=== PATIENT | male | born 1990 ===

== ENCOUNTER 2020-02-16 15:49 | Outpatient (REF) | payer BC, SELFPAY | END 2020-02-16 15:50 | disposition home or self-care (01) | LOC: HO.LAB 15:49 | PROVIDERS: Visit Provider Internal Medicine | DX: Z20.828 Contact with and (suspected) exposure to other viral communicable diseases (principal) | CPT/HCPCS: U0003 ==

== ENCOUNTER 2020-03-18 09:46 | Outpatient (REF) | payer BC, SELFPAY | END 2020-03-18 09:47 | disposition home or self-care (01) | LOC: HO.LAB 09:46 | PROVIDERS: PCP Internal Medicine; Visit Provider Internal Medicine | DX: Z20.828 Contact with and (suspected) exposure to other viral communicable diseases (principal) | CPT/HCPCS: C9803; U0003 ==

== ENCOUNTER 2020-08-20 14:46 | Outpatient (REF) | payer BC, SELFPAY | END 2020-08-20 14:47 | disposition home or self-care (01) | LOC: HO.LAB 14:46 | PROVIDERS: Visit Provider Internal Medicine | DX: Z20.822 Contact with and (suspected) exposure to COVID-19 (principal) | CPT/HCPCS: C9803; U0003; U0005 ==

== ENCOUNTER 2020-11-30 12:55 | Outpatient (REF) | payer BC, SELFPAY | END 2020-11-30 12:56 | disposition home or self-care (01) | LOC: HO.LAB 12:55 | PROVIDERS: Visit Provider Internal Medicine | DX: Z20.822 Contact with and (suspected) exposure to COVID-19 (principal) | CPT/HCPCS: C9803; U0003; U0005 ==

== ENCOUNTER 2021-05-18 14:33 | Outpatient (REF) | payer BC, SELFPAY ==
[2021-05-19 04:25] LABS: HBS Num1 180.49 mIU/mL (0-7.99); HBc Num1 0.08 S/CO (0.00-0.79); HIV AB/AG Nonreactive (Nonreactive); HIV Num 1 0.07 S/CO (0.00-0.99); Hepatitis B Core Antibody Nonreactive (Nonreactive); ~Hepatitis B Surface Antibody REACTIVE (Nonreactive)
[2021-05-19 04:29] LABS: HBsAGNum1 0.21 S/CO (0.00-0.99); Hepatitis B Surface Antigen Negative (Negative); ~Hepatitis C Antibody Nonreactive (Nonreactive)
== END 2021-05-18 14:34 | disposition home or self-care (01) ==
LOC: HO.LAB 14:33
PROVIDERS: PCP Internal Medicine; Visit Provider Internal Medicine
DX: E66.9 Obesity, unspecified (principal); R79.89 Other specified abnormal findings of blood chemistry
CPT/HCPCS: 36415; 86704; 86706; 86803; 87340; 87389

== ENCOUNTER → 2022-01-05 13:58 | Outpatient (BNVA) | payer OTHER, SELFPAY | PROVIDERS: PCP Internal Medicine; Visit Provider Physician Assistant | DX: S50.11XA Contusion of right forearm, initial encounter (principal); Y04.8XXA Assault by other bodily force, initial encounter | CPT/HCPCS: 99203 ==

== ENCOUNTER → 2022-01-13 11:31 | Outpatient (BNVA) | payer OTHER, SELFPAY | PROVIDERS: PCP Internal Medicine; Visit Provider Physician Assistant | DX: S50.11XA Contusion of right forearm, initial encounter (principal); Y04.8XXA Assault by other bodily force, initial encounter | CPT/HCPCS: 99213 ==

== ENCOUNTER 2022-05-01 11:48 | Outpatient (REF) | payer OTHER, SELFPAY ==
--- NOTE | ~2022-05-01 | XR_ITS ---
EXAMINATION: XR CHEST CLINICAL INFORMATION: Contusion front wall of the thorax COMPARISON: None TECHNIQUE: 2 views of the chest were obtained. FINDINGS: No significant abnormality is noted involving the heart, lungs, mediastinum, bony thorax or soft tissues. XR/XR chest 2V IMPRESSION: Unremarkable examination.
== END 2022-05-01 11:49 | disposition home or self-care (01) ==
LOC: HO.HMGCX 11:48
PROVIDERS: PCP Internal Medicine; Visit Provider Internal Medicine
DX: S20.219A Contusion of unspecified front wall of thorax, initial encounter (principal); X58.XXXA Exposure to other specified factors, initial encounter; Y93.9 Activity, unspecified; Y92.9 Unspecified place or not applicable; Y99.9 Unspecified external cause status
CPT/HCPCS: 71046

== ENCOUNTER 2022-05-04 14:42 | Emergency (ER) | payer OTHER, SELFPAY ==
--- NOTE | ~2022-05-04 | XR_ITS ---
EXAMINATION: XR CHEST CLINICAL INFORMATION: Abdominal pain radiating to chest COMPARISON: Chest radiographs 05/01/2022, abdominal ultrasound 05/04/2022 TECHNIQUE: 2 views of the chest were obtained. FINDINGS: There are low lung volumes. Heart is within limits of normal size. The vascularity is normal. There is mild coarsening of the bronchiolar markings. The posterior costophrenic sulci are clear and there is no effusion. Small opacity left lateral base may represent atelectasis or airspace consolidation. The remainder lungs appear clear. The hilar and mediastinal contours and visualized bony structures are unremarkable. XR/XR chest 2V IMPRESSION: 1. Low lung volumes. Mild coarsening bronchiolar markings. 2. Small opacity left lateral base, atelectasis or small airspace consolidation. 3. Posterior costophrenic sulci are clear. No effusion.
--- NOTE | ~2022-05-04 | US_ITS ---
EXAMINATION: US ABDOMEN COMPLETE CLINICAL INFORMATION: Upper abdominal pain x2 weeks. COMPARISON: None TECHNIQUE: Real-time imaging of the abdominal viscera. FINDINGS: PANCREAS: Obscured by bowel gas and could not be evaluated ABDOMINAL AORTA: Only the proximal aorta couldn't be seen and was normal caliber. The mid and distal aorta were obscured by bowel gas. INFERIOR VENA CAVA: Visualized portions are normal. LIVER: There is limited visualization of the left lobe because of overlying bowel gas. The liver is normal in size. The liver contour is normal. Parenchymal echogenicity is normal. No focal hepatic lesion. There is no intrahepatic biliary duct dilatation seen. GALLBLADDER: The gallbladder is physiologically distended without evidence of stones, sludge, polyps, wall thickening or pericholecystic fluid. COMMON BILE DUCT: Normal in caliber measuring 0.5 cm in diameter. RIGHT KIDNEY: No hydronephrosis. No renal calculi or focal parenchymal lesions. The kidney measures 9.5 cm in maximum dimension. LEFT KIDNEY: No hydronephrosis. There is a 1.4 cm benign Bosniak class I lower pole cyst. This needs no additional imaging or follow-up. No solid renal masses. No renal calculi or focal parenchymal lesions. The kidney measures 10.7 cm in maximum dimension. SPLEEN: Spleen is enlarged measuring 13.9 cm in maximum dimension. FREE FLUID: None. US/US abdomen complete IMPRESSION: Mild splenomegaly. The pancreas could not be imaged as it was obscured by bowel gas.
--- NOTE | ~2022-05-04 | CT_ITS ---
EXAMINATION: CT ABDOMEN AND PELVIS WITH CONTRAST CLINICAL INFORMATION: Abdominal pain COMPARISON: None TECHNIQUE: Multidetector volumetric images were obtained from the superior aspect of the liver through the pubic symphysis following administration 85 mL of Omnipaque 350 intravenous contrast. Sagittal and coronal reformatted images were obtained on the technologist's workstation. Oral contrast: No This CT examination was performed using dose optimization techniques as appropriate, variously including the following: *Automated exposure control *Adjustment of mA and/or kV according to patient size (this includes techniques or standardized protocols for targeted exams where dose is matched to indication/reason for exam; i.e. extremities or head) *Use of iterative reconstruction technique DLP: 674 mGy-cm FINDINGS: Motion degraded exam limiting evaluation. LUNG BASES: Respiratory motion limits evaluation of the lung bases. ABDOMINAL AND PELVIC WALL: Unremarkable. LIVER AND BILIARY TREE: Unremarkable. GALLBLADDER: Unremarkable. PANCREAS: Unremarkable. SPLEEN: Spleen is mildly enlarged measuring 13.1 cm in span. ADRENAL GLANDS: Unremarkable. KIDNEYS AND URETERS: Bosniak 2 likely benign left renal cyst, no imaging follow-up recommended. GASTROINTESTINAL TRACT: Large and small bowel are unremarkable. Normal appendix. VASCULAR: Unremarkable. LYMPH NODES/PERITONEUM: Mildly enlarged bilateral inguinal nodes measuring up to 1.2 cm short axis, 3:99 on the left. FREE FLUID: None. BLADDER: Unremarkable. PELVIC VISCERA: Unremarkable. OSSEOUS STRUCTURES: Unremarkable. CT/CT abdomen pelvis w IV con IMPRESSION: No acute findings to explain symptoms of abdominal pain, although motion degradation somewhat limits evaluation. Mildly enlarged bilateral inguinal nodes measuring up to 1.2 cm short axis on the left, of indeterminate etiology, however given concomitant mild splenomegaly, recommend clinical correlation with any symptoms of underlying lymphoproliferative disorder. Inguinal nodes would be amenable to short interval follow-up or sampling as clinically warranted.
[2022-05-04 14:43] VITALS: BP 151/93; PULSE 88; RESP 17; TEMP 36.6; O2SAT 98; BMI 30.7
--- NOTE | 2022-05-04 14:44 | ECG_ITS ---
Test Reason : CHEST PAIN Blood Pressure : / mmHG Vent. Rate : 084 BPM Atrial Rate : 084 BPM P-R Int : 138 ms QRS Dur : 108 ms QT Int : 360 ms P-R-T Axes : 030 068 -01 degrees QTc Int : 425 ms Normal sinus rhythm Abnormal QRS-T angle, consider primary T wave abnormality Abnormal ECG No previous ECGs available Referred By: Angelica Bunch Electronically Signed By:DARIUSZ ANGUIANO MD
--- NOTE | 2022-05-04 14:45 | ED_ITS ---
HPI - Abdominal Pain General Chief Complaint: Abdominal Pain <ELMO Robert - Last Filed: 05/04/22 14:48> Stated Complaint: L abd pain <ELMO Robert - Last Filed: 05/04/22 14:48> Time Seen by Provider: 05/04/22 17:06 <ELMO Robert - Last Filed: 05/04/22 14:48> Source: patient <Latrell Garcia MD - Last Filed: 05/04/22 19:48> Limitations: no limitations <Latrell Garcia MD - Last Filed: 05/04/22 19:48> History of Present Illness HPI narrative: This is a 31-year-old male who for several days has had pain that began in his right upper quadrant with associated nausea. The pain has at times been worse with eating. He states his overall appetite has been decreased. Patient also reports pain in his left upper abdomen which he states is sharp and shooting, and worse with movement. Patient has felt a little short of breath. Denies any cough or fever. He has noted that his stool seems front end ui developer in color in his urine seemed darker. He denies constipation or diarrhea, this urinary or urinary frequency. The patient's os primary care physician today and was referred to the emergency department . The patient denies heavy alcohol use, last had a drink about 5 days ago, said it was only 1-2 drinks, denies daily use, denies heavy use <Latrell Garcia MD - Last Filed: 05/04/22 19:48> Related Data Home Medications: Previous Rx's Medication Instructions Recorded meloxicam 15 mg tablet 15 mg PO DAILY #14 tabs 05/01/22 ondansetron 4 mg disintegrating 4 mg PO Q6H PRN nausea and 05/04/22 tablet vomiting #10 tabs oxycodone-acetaminophen 5 mg-325 1 - 2 tab PO Q4-6H PRN pain #12 05/04/22 mg tablet (Endocet) tabs <ELMO Robert - Last Filed: 05/04/22 14:48> Allergies/Adverse Reactions: Allergies Allergy/AdvReac Type Severity Reaction Status Date / Time No Known Allergies Allergy Verified 05/04/22 13:54 <ELMO Robert - Last Filed: 05/04/22 14:48> Review of Systems Review of Systems as per HPI <Latrell Garcia MD - Last Filed: 05/04/22 19:48> Yes all other systems are reviewed and are negative <Latrell Garcia MD - Last Filed: 05/04/22 19:48> PMFSH Past Medical History Medical History: Medical History (Updated 05/04/22 @ 19:14 by Latrell Garcia MD) Asthma Generalized anxiety disorder Obesity (BMI 30-39.9) Thrombocytopenia <ELMO Robert - Last Filed: 05/04/22 14:48> Surgical History: Surgical History (Updated 01/29/20 @ 13:44 by Krystin Dozier [facility]) No pertinent past surgical history <ELMO Robert - Last Filed: 05/04/22 14:48> Family History Family History: Family History (Updated 05/18/21 @ 13:51 by Kavya Nagy MD) Father Depression Mother Hypertension Depression Paternal Grandmother Breast cancer Brother Eye cancer Maternal Grandmother Myocardial infarction Maternal Grandfather Substance abuse Other Brain tumor <ELMO Robert - Last Filed: 05/04/22 14:48> Social History Social History: Social History (Updated 05/18/21 @ 13:52 by Kavya Nagy MD) Housing: Apartment Alcohol intake: current Alcohol intake frequency: does not drink Patient Tobacco Use Status: Never used Tobacco Smoked in Last 30 Days: No e-Cigarette/Vaping Use: Never Used Second Hand Smoke Exposure: No Use of substances other than those prescribed or required for medical reasons: Yes Substance Use Type: Marijuana Substance Use Frequency: Occasionally Advance Directives: No Advance Directives Information Provided: No Current occupational status: employed Cognitive needs: No Hearing needs: No Vision needs: No <ELMO Robert - Last Filed: 05/04/22 14:48> Physical Exam ED Vital Signs: Vital Signs - 24 hr 05/04/22 14:43 05/04/22 16:50 05/04/22 19:34 Temperature 98 F 98.2 F 97.9 F Pulse Rate 88 68 82 Respiratory Rate 17 20 16 Blood Pressure 151/93 H 147/87 H 140/87 H Pulse Oximetry 98 99 96 Oxygen Delivery Method Room Air Room Air Room Air BMI result Body Mass Index 30.7 <ELMO Robert - Last Filed: 05/04/22 14:48> Vital Signs - 24 hr 05/04/22 14:43 05/04/22 16:50 05/04/22 19:34 Temperature 98 F 98.2 F 97.9 F Pulse Rate 88 68 82 Respiratory Rate 17 20 16 Blood Pressure 151/93 H 147/87 H 140/87 H Pulse Oximetry 98 99 96 Oxygen Delivery Method Room Air Room Air Room Air BMI result Body Mass Index 30.7 <Latrell Garcia MD - Last Filed: 05/04/22 19:48> Const General: no acute distress <Latrell Garcia MD - Last Filed: 05/04/22 19:48> Orientation/consciousness: patient oriented x3 <Latrell Garcia MD - Last Filed: 05/04/22 19:48> HENMT Head: Yes normal to inspection <Latrell Garcia MD - Last Filed: 05/04/22 19:48> General nose exam: Normal external nose present <Latrell Garcia MD - Last Filed: 05/04/22 19:48> Mouth: moist mucous membranes <Latrell Garcia MD - Last Filed: 05/04/22 19:48> Throat: Yes posterior oropharynx normal, Yes tonsils normal and Yes uvula midline <Latrell Garcia MD - Last Filed: 05/04/22 19:48> Eyes Eyelids: Yes eyelids normal <Latrell Garcia MD - Last Filed: 05/04/22 19:48> Conjunctivae: conjunctivae normal <Latrell Garcia MD - Last Filed: 05/04/22 19:48> Pupils: Equal, round and reactive pupils present <Latrell Garcia MD - Last Filed: 05/04/22 19:48> Neck Neck: Yes supple <Latrell Garcia MD - Last Filed: 05/04/22 19:48> Resp Effort & Inspection: normal respiratory effort <Latrell Garcia MD - Last Filed: 05/04/22 19:48> Auscultation: clear to auscultation bilaterally <Latrell Garcia MD - Last Filed: 05/04/22 19:48> Cardio Rate: regular rate <MD Aster Goodrich Last Filed: 05/04/22 19:48> Rhythm: regular rhythm <MD Aster Goodrich Last Filed: 05/04/22 19:48> Heart sounds: S1 normal heart sound present, S2 normal heart sound present, no gallops, no murmurs and no rubs <Latrell Garcia MD - Last Filed: 05/04/22 19:48> GI Inspection: No distended <Latrell Garcia MD - Last Filed: 05/04/22 19:48> Palpation (GI): Tenderness to palpation present (GI) in the epigastrum, in the LUQ and in the RUQ <Latrell Garcia MD - Last Filed: 05/04/22 19:48> Skin General skin exam: other (Warm and dry) <Latrell Garcia MD - Last Filed: 05/04/22 19:48> Neuro General: patient oriented x3 and CN's II-XI intact bilaterally <Latrell Garcia MD - Last Filed: 05/04/22 19:48> Cranial nerves: Yes Equal, round and reactive pupils present <Latrell Garcia MD - Last Filed: 05/04/22 19:48> Extrem General: Yes no pedal edema <Latrell Garcia MD - Last Filed: 05/04/22 19:48> Psych Affect: normal affect <Latrell Garcia MD - Last Filed: 05/04/22 19:48> Attitude: cooperative <Latrell Garcia MD - Last Filed: 05/04/22 19:48> Course Course Course Narrative: RME14:45PM - 31yoM c PMHx of asthma with presenting to the ER with complaints of g eneralized fatigue/malaise, chills, subjective fevers, nausea with right upper quadrant pain that is now radiating to the epigastric/chest/left upper quadrant for the past 2 weeks worse today. Reports he was seen at the urgent care on 05/01/2022 and diagnosed with muscle strain and given meloxicam and although no symptomatic relief. Then he went to Dr. Nagy his primary today and he sent him here for further evaluation treatment. Dr. Nagy when he spoke to me over the phone to give me report he reported that he did urine for the patient the patient had protein in his urine although no blood in his urine was dark in color. Patient is also reporting david-colored stools. Denies any other symptoms related to this. Denies recent alcohol drinking. Plan: Will obtain labs, EKG, chest x-ray, abdominal ultrasound, UA, COVID/RSV/flu swab. Patient will be sent back to the waiting room to be destin garibay in the ED. <ELMO Robert - Last Filed: 05/04/22 14:48> Medical Decision Making Medical Decision Making [facility] Narrative: Patient with right upper quadrant and left upper quadrant pain. Exam seems out of proportion to objective pathology. Patient does have mild elevation of his liver transaminases and alkaline phosphatase, normal bilirubin. Patient seemed to have exquisite tenderness in his left upper quadrant. Patient does have mild splenomegaly but CT scan shows no other concerning pathology -does have mildly enlarged lymph glands in his inguinal area. Ultrasound showed physiologically distended gallbladder but no other evidence of biliary disease. White blood cell count is normal. Patient has history of generalized anxiety disorder and I suspect there may be degree of anxiety component to the patient's presentation. Patient plane of left-sided chest pain as well as the upper quadrant pain. EKG was unremarkable, troponin negative. Patient does have mildly elevated ESR has well as CRP, nonspecific. <Latrell Garcia MD - Last Filed: 05/04/22 19:48> Differential Diagnosis Differential Diagnoses: The differential diagnosis associated with the presentation includes <Latrell Garcia MD - Last Filed: 05/04/22 19:48> Biliary colic, cholecystitis, pancreatitis, adynamic gallbladder, peptic ulcer disease, pyelonephritis, splenic infarct, pneumonia, acute myocardial infarction. <Latrell Garcia MD - Last Filed: 05/04/22 19:48> Admission/Observation Consideration of admission/observation: Escalation of care including admission/observation considered <Latrell Garcia MD - Last Filed: 05/04/22 19:48> Consult Healthcare Provider Management of the patient was discussed with: Paper Spooler <Latrell Garcia MD - Last Filed: 05/04/22 19:48> Dr. Simmons of GI, agrees with outpatient follow up, outpatient HIDA scan, she will order a HIDA scan tomorrow for as soon as possible, likely next week. She also recommends repeat LFTs in 3 days on Sunday. <Latrell Garcia MD - Last Filed: 05/04/22 19:48> Lab Data [facility] Lab Attestation statement: I reviewed the patient's lab results. <Latrell Garcia MD - Last Filed: 05/04/22 19:48> Result Diagrams: 05/04/22 14:58 05/04/22 14:58 <Angelica Bunch, PA - Last Filed: 05/04/22 14:48> Labs: Lab Results 05/04/22 05/04/22 05/04/22 Range/Units 14:58 14:58 14:58 WBC 7.7 (4.8-10.8) X10*3/uL RBC 5.66 (4.60-5.80) X10*6/uL Hgb 13.7 L (14.0-18.0) g/dl Hct 42.9 (42.0-52.0) % MCV 75.8 L (80.0-98.0) fL MCH 24.2 L (27.0-33.0) pg MCHC 31.9 (31.0-36.0) g/dl RDW 15.3 (11.0-16.0) % Plt Count 261 (160-400) X10*3/uL MPV 8.8 L (9.4-12.4) fL Immature Gran % (Auto) 0.4 (0.0-0.4) % Neut % (Auto) 62.3 (45-73) % Lymph % (Auto) 22.9 (20-40) % [place] % (Auto) 8.3 (2-11) % Eos % (Auto) 5.6 H (0-4) % Baso % (Auto) 0.5 (0-2) % Lymph # (Auto) 1.8 (1.2-4.9) X10*3/uL [place] # (Auto) 0.6 (0.1-1.2) X10*3/uL Eos # (Auto) 0.4 (0.0-0.4) X10*3/uL Baso # (Auto) 0.0 (0.0-0.2) X10*3/uL Abs Immat Gran (auto) 0.03 (0.00-0.03) X10*3/uL Absolute Neuts (auto) 4.8 (2.0-8.3) x10*3/uL Absolute Nucleated RBC 0.000 (0.0-0.012) X10*3/uL Nucleated RBC % (auto) 0.0 (0.0-0.2) /100WBC ESR 30 H (0-15) MM/HR PT 13.2 H (10.0-13.1) SEC INR 1.1 (0.9-1.1) Sodium (135-145) mmol/L Potassium (3.3-5.1) mmol/L Chloride (96-108) mmol/L Carbon Dioxide (22-29) mmol/L Anion Gap (12-20) BUN (9-16) mg/dL Creatinine (0.5-1.4) mg/dL Estim Creat Clear Calc Estimated GFR Random Glucose (60-115) mg/dL Calcium (8.4-10.2) mg/dL Magnesium (1.6-2.6) mg/dL Total Bilirubin (0.0-1.0) mg/dL AST (5-37) U/L ALT (0-40) U/L Alkaline Phosphatase (39-117) U/L Troponin I High Sens (<3.5-35.0) ng/L C-Reactive Protein (< or = 0.50) mg/dL Total Protein (6.5-8.0) g/dL Albumin (3.5-5.0) g/dL Lipase (8-78) U/L Urine Color Urine Appearance Urine pH (5.0-9.0) Ur Specific [place] (1.005-1.025) Urine Protein (Neg-Trace) mg/dL Urine Glucose (UA) (Negative) mg/dL Urine Ketones (Negative) mg/dL Urine Blood (Negative) Urine Nitrite (Negative) Ur Leukocyte Esterase (Negative) Urine RBC (0-2) /HPF Urine WBC (0-5) /HPF Ur Squamous Epith Cells (0-2) /HPF Urine Bacteria (None Seen) Hyaline Casts (0-2) /LPF Ethyl Alcohol mg/dL 05/04/22 05/04/22 05/04/22 Range/Units 14:58 14:58 15:52 WBC (4.8-10.8) X10*3/uL RBC (4.60-5.80) X10*6/uL Hgb (14.0-18.0) g/dl Hct (42.0-52.0) % MCV (80.0-98.0) fL MCH (27.0-33.0) pg MCHC (31.0-36.0) g/dl RDW (11.0-16.0) % Plt Count (160-400) X10*3/uL MPV (9.4-12.4) fL Immature Gran % (Auto) (0.0-0.4) % Neut % (Auto) (45-73) % Lymph % (Auto) (20-40) % Barn[place] % (Auto) (2-11) % Eos % (Auto) (0-4) % Baso % (Auto) (0-2) % Lymph # (Auto) (1.2-4.9) X10*3/uL [place] # (Auto) (0.1-1.2) X10*3/uL Eos # (Auto) (0.0-0.4) X10*3/uL Baso # (Auto) (0.0-0.2) X10*3/uL Abs Immat Gran (auto) (0.00-0.03) X10*3/uL Absolute Neuts (auto) (2.0-8.3) x10*3/uL Absolute Nucleated RBC (0.0-0.012) X10*3/uL Nucleated RBC % (auto) (0.0-0.2) /100WBC ESR (0-15) MM/HR PT (10.0-13.1) SEC INR (0.9-1.1) Sodium 136 (135-145) mmol/L Potassium 4.0 (3.3-5.1) mmol/L Chloride 103 (96-108) mmol/L Carbon Dioxide 25 (22-29) mmol/L Anion Gap 12 (12-20) BUN 7 L (9-16) mg/dL Creatinine 0.81 (0.5-1.4) mg/dL Estim Creat Clear Calc 133.4 Estimated GFR > 60 Random Glucose 98 (60-115) mg/dL Calcium 9.0 (8.4-10.2) mg/dL Magnesium 1.9 (1.6-2.6) mg/dL Total Bilirubin 1.0 (0.0-1.0) mg/dL AST 129 H (5-37) U/L ALT 337 H (0-40) U/L Alkaline Phosphatase 466 H (39-117) U/L Troponin I High Sens < 3.5 (<3.5-35.0) ng/L C-Reactive Protein 2.72 H (< or = 0.50) mg/dL Total Protein 7.9 (6.5-8.0) g/dL Albumin 3.8 (3.5-5.0) g/dL Lipase 40 (8-78) U/L Urine Color Yellow Urine Appearance Clear Urine pH 7.0 (5.0-9.0) Ur Specific [place] 1.010 (1.005-1.025) Urine Protein 30 (1+) H (Neg-Trace) mg/dL Urine Glucose (UA) Negative (Negative) mg/dL Urine Ketones Negative (Negative) mg/dL Urine Blood Negative (Negative) Urine Nitrite Negative (Negative) Ur Leukocyte Esterase Negative (Negative) Urine RBC 0-2 (0-2) /HPF Urine WBC 0-5 (0-5) /HPF Ur Squamous Epith Cells 0-2 (0-2) /HPF Urine Bacteria None Seen (None Seen) Hyaline Casts 0-2 (0-2) /LPF Ethyl Alcohol < 10 mg/dL <ELMO Robert - Last Filed: 05/04/22 14:48> Lab Results 05/04/22 05/04/22 05/04/22 Range/Units 14:58 14:58 14:58 WBC 7.7 (4.8-10.8) X10*3/uL RBC 5.66 (4.60-5.80) X10*6/uL Hgb 13.7 L (14.0-18.0) g/dl Hct 42.9 (42.0-52.0) % MCV 75.8 L (80.0-98.0) fL MCH 24.2 L (27.0-33.0) pg MCHC 31.9 (31.0-36.0) g/dl RDW 15.3 (11.0-16.0) % Plt Count 261 (160-400) X10*3/uL MPV 8.8 L (9.4-12.4) fL Immature Gran % (Auto) 0.4 (0.0-0.4) % Neut % (Auto) 62.3 (45-73) % Lymph % (Auto) 22.9 (20-40) % [place] % (Auto) 8.3 (2-11) % Eos % (Auto) 5.6 H (0-4) % Baso % (Auto) 0.5 (0-2) % Lymph # (Auto) 1.8 (1.2-4.9) X10*3/uL [place] # (Auto) 0.6 (0.1-1.2) X10*3/uL Eos # (Auto) 0.4 (0.0-0.4) X10*3/uL Baso # (Auto) 0.0 (0.0-0.2) X10*3/uL Abs Immat Gran (auto) 0.03 (0.00-0.03) X10*3/uL Absolute Neuts (auto) 4.8 (2.0-8.3) x10*3/uL Absolute Nucleated RBC 0.000 (0.0-0.012) X10*3/uL Nucleated RBC % (auto) 0.0 (0.0-0.2) /100WBC ESR 30 H (0-15) MM/HR PT 13.2 H (10.0-13.1) SEC INR 1.1 (0.9-1.1) Sodium (135-145) mmol/L Potassium (3.3-5.1) mmol/L Chloride (96-108) mmol/L Carbon Dioxide (22-29) mmol/L Anion Gap (12-20) BUN (9-16) mg/dL Creatinine (0.5-1.4) mg/dL Estim Creat Clear Calc Estimated GFR Random Glucose (60-115) mg/dL Calcium (8.4-10.2) mg/dL Magnesium (1.6-2.6) mg/dL Total Bilirubin (0.0-1.0) mg/dL AST (5-37) U/L ALT (0-40) U/L Alkaline Phosphatase (39-117) U/L Troponin I High Sens (<3.5-35.0) ng/L C-Reactive Protein (< or = 0.50) mg/dL Total Protein (6.5-8.0) g/dL Albumin (3.5-5.0) g/dL Lipase (8-78) U/L Urine Color Urine Appearance Urine pH (5.0-9.0) Ur Specific [place] (1.005-1.025) Urine Protein (Neg-Trace) mg/dL Urine Glucose (UA) (Negative) mg/dL Urine Ketones (Negative) mg/dL Urine Blood (Negative) Urine Nitrite (Negative) Ur Leukocyte Esterase (Negative) Urine RBC (0-2) /HPF Urine WBC (0-5) /HPF Ur Squamous Epith Cells (0-2) /HPF Urine Bacteria (None Seen) Hyaline Casts (0-2) /LPF Ethyl Alcohol mg/dL 05/04/22 05/04/22 05/04/22 Range/Units 14:58 14:58 15:52 WBC (4.8-10.8) X10*3/uL RBC (4.60-5.80) X10*6/uL Hgb (14.0-18.0) g/dl Hct (42.0-52.0) % MCV (80.0-98.0) fL MCH (27.0-33.0) pg MCHC (31.0-36.0) g/dl RDW (11.0-16.0) % Plt Count (160-400) X10*3/uL MPV (9.4-12.4) fL Immature Gran % (Auto) (0.0-0.4) % Neut % (Auto) (45-73) % Lymph % (Auto) (20-40) % [place] % (Auto) (2-11) % Eos % (Auto) (0-4) % Baso % (Auto) (0-2) % Lymph # (Auto) (1.2-4.9) X10*3/uL [place] # (Auto) (0.1-1.2) X10*3/uL Eos # (Auto) (0.0-0.4) X10*3/uL Baso # (Auto) (0.0-0.2) X10*3/uL Abs Immat Gran (auto) (0.00-0.03) X10*3/uL Absolute Neuts (auto) (2.0-8.3) x10*3/uL Absolute Nucleated RBC (0.0-0.012) X10*3/uL Nucleated RBC % (auto) (0.0-0.2) /100WBC ESR (0-15) MM/HR PT (10.0-13.1) SEC INR (0.9-1.1) Sodium 136 (135-145) mmol/L Potassium 4.0 (3.3-5.1) mmol/L Chloride 103 (96-108) mmol/L Carbon Dioxide 25 (22-29) mmol/L Anion Gap 12 (12-20) BUN 7 L (9-16) mg/dL Creatinine 0.81 (0.5-1.4) mg/dL Estim Creat Clear Calc 133.4 Estimated GFR > 60 Random Glucose 98 (60-115) mg/dL Calcium 9.0 (8.4-10.2) mg/dL Magnesium 1.9 (1.6-2.6) mg/dL Total Bilirubin 1.0 (0.0-1.0) mg/dL AST 129 H (5-37) U/L ALT 337 H (0-40) U/L Alkaline Phosphatase 466 H (39-117) U/L Troponin I High Sens < 3.5 (<3.5-35.0) ng/L C-Reactive Protein 2.72 H (< or = 0.50) mg/dL Total Protein 7.9 (6.5-8.0) g/dL Albumin 3.8 (3.5-5.0) g/dL Lipase 40 (8-78) U/L Urine Color Yellow Urine Appearance Clear Urine pH 7.0 (5.0-9.0) Ur Specific [place] 1.010 (1.005-1.025) Urine Protein 30 (1+) H (Neg-Trace) mg/dL Urine Glucose (UA) Negative (Negative) mg/dL Urine Ketones Negative (Negative) mg/dL Urine Blood Negative (Negative) Urine Nitrite Negative (Negative) Ur Leukocyte Esterase Negative (Negative) Urine RBC 0-2 (0-2) /HPF Urine WBC 0-5 (0-5) /HPF Ur Squamous Epith Cells 0-2 (0-2) /HPF Urine Bacteria None Seen (None Seen) Hyaline Casts 0-2 (0-2) /LPF Ethyl Alcohol < 10 mg/dL <Latrell Garcia MD - Last Filed: 05/04/22 19:48> Independent Interpretation I performed an independent interpretation of an: EKG <Lartell Garcia MD - Last Filed: 05/04/22 19:48> Interpretation: sinus rhythm with a rate of 84. No ST elevation or depression. Abnormal QRS T angle. No prior EKG for comparison <Latrell Garcia MD - Last Filed: 05/04/22 19:48> Radiology Impression Discussion of test interpretation with radiology: I have reviewed the radiologist's reading. <Latrell Garcia MD - Last Filed: 05/04/22 19:48> Radiologist Impression: ultrasound abdomen: The gallbladder is physiologically distended without evidence of stones, sludge, polyps, wall thickening or pericholecystic fluid. COMMON BILE DUCT: Normal in caliber measuring 0.5 cm in diameter. SPLEEN: Spleen is enlarged measuring 13.9 cm in maximum dimension. FREE FLUID: None. IMPRESSION: Mild splenomegaly. The pancreas could not be imaged as it was obscured by bowel gas. chest x-ray: IMPRESSION: 1. Low lung volumes. Mild coarsening bronchiolar markings. 2. Small opacity left lateral base, atelectasis or small airspace consolidation. 3. Posterior costophrenic sulci are clear. No effusion. CT abdomen and pelvis with IV contrast: IMPRESSION: ? No acute findings to explain symptoms of abdominal pain, although motion degradation somewhat limits evaluation. ? Mildly enlarged bilateral inguinal nodes measuring up to 1.2 cm short axis on the left, of indeterminate etiology, however given concomitant mild splenomegaly, recommend clinical correlation with any symptoms of underlying lymphoproliferative disorder. Inguinal nodes would be amenable to short interval follow-up or sampling as clinically warranted. ? <Latrell Garcia MD - Last Filed: 05/04/22 19:48> External Record Review External record reviewed: Prior outpatient labs <Latrell Garcia MD - Last Filed: 05/04/22 19:48> Prescription Management I considered prescription management with: Pain Medication <Latrell Garcia MD - Last Filed: 05/04/22 19:48> Medications Administered Discontinued Medications Generic Name Dose Route Start Last Admin Trade Name Freq PRN Reason Stop Dose Admin Hydromorphone HCl 1 mg 05/04/22 17:45 05/04/22 17:50 Hydromorphone Hcl 1 Mg/Ml Syringe IVPUSH 05/04/22 17:46 1 mg ONCE ONE Administration Protocol Sodium Chloride 1,000 mls @ 999 mls/hr 05/04/22 16:45 05/04/22 17:02 Ns IVCONT 05/04/22 17:45 999 mls/hr .Q1H1M CAROLYN Administration Iohexol 100 ml 05/04/22 17:38 05/04/22 17:38 Iohexol 350 Mg/Ml 100 Ml Infus..Btl IV 05/04/22 17:39 85 ml ONCE ONE Administration Morphine Sulfate 4 mg 05/04/22 16:45 05/04/22 17:02 Morphine Sulfate 4 Mg/Ml Cartridge IVPUSH 05/04/22 16:46 4 mg ONCE ONE Administration Protocol Ondansetron HCl 4 mg 05/04/22 16:45 05/04/22 17:02 Ondansetron Hcl 4 Mg/2 Ml Vial IVPUSH 05/04/22 16:46 4 mg ONCE ONE Administration <ELMO Robert - Last Filed: 05/04/22 14:48> Medications Administered Discontinued Medications Generic Name Dose Route Start Last Admin Trade Name Freq PRN Reason Stop Dose Admin Hydromorphone HCl 1 mg 05/04/22 17:45 05/04/22 17:50 Hydromorphone Hcl 1 Mg/Ml Syringe IVPUSH 05/04/22 17:46 1 mg ONCE ONE Administration Protocol Sodium Chloride 1,000 mls @ 999 mls/hr 05/04/22 16:45 05/04/22 17:02 Ns IVCONT 05/04/22 17:45 999 mls/hr .Q1H1M CAROLYN Administration Iohexol 100 ml 05/04/22 17:38 05/04/22 17:38 Iohexol 350 Mg/Ml 100 Ml Infus..Btl IV 05/04/22 17:39 85 ml ONCE ONE Administration Morphine Sulfate 4 mg 05/04/22 16:45 05/04/22 17:02 Morphine Sulfate 4 Mg/Ml Cartridge IVPUSH 05/04/22 16:46 4 mg ONCE ONE Administration Protocol Ondansetron HCl 4 mg 05/04/22 16:45 05/04/22 17:02 Ondansetron Hcl 4 Mg/2 Ml Vial IVPUSH 05/04/22 16:46 4 mg ONCE ONE Administration <Latrell Garcia MD - Last Filed: 05/04/22 19:48> Discharge Plan Discharge Clinical Impression: Abdominal pain, Abnormal LFTs (liver function tests) <ELMO Robert - Last Filed: 05/04/22 14:48> Patient Disposition: Home, Self-Care <ELMO Robert - Last Filed: 05/04/22 14:48> Instructions: Abdominal Pain (ED) <ELMO Robert - Last Filed: 05/04/22 14:48> Additional Instructions: Follow-up with her primary care physician, and with Gastroenterology. Dr. Simmons of Gastroenterology is to order a HIDA scan for you, which hopefully can have next week. Call your primary care physician tomorrow to arrange to have repeat liver function test done on Sunday. Return for any new or worsened symptoms such as worsened pain, uncontrolled vomiting, fever. Use the pain medicine and medicine for nausea as prescribed. Avoid alcohol use <ELMO Robert - Last Filed: 05/04/22 14:48> Prescriptions: New oxycodone-acetaminophen [Endocet] 5-325 mg tablet 1 - 2 tab PO Q4-6H PRN (Reason: pain) Qty: 12 0RF Rx Instructions: Partial Fill upon patient request. ondansetron 4 mg tablet,disintegrating 4 mg PO Q6H PRN (Reason: nausea and vomiting) Qty: 10 0RF No Action meloxicam 15 mg tablet 15 mg PO DAILY Qty: 14 0RF <ELMO Robert - Last Filed: 05/04/22 14:48> Stand Alone Forms: Work/School Release <ELMO Robert - Last Filed: 05/04/22 14:48> Interventions: ED Discharge Assessment Last Done: 05/04/22 19:36 <ELMO Robert - Last Filed: 05/04/22 14:48> Discharge Date/Time: 05/04/22 19:39 <ELMO Robert - Last Filed: 05/04/22 14:48>
[2022-05-04 15:04] LABS: MANUAL DIFF FLAG NO
[2022-05-04 15:05] LABS: Basophils Percent Auto 0.5 % (0-2); Eosinophils Absolute Auto 0.4 X10*3/uL (0.0-0.4); Eosinophils Percent Auto 5.6 % (0-4); Hematocrit 42.9 % (42.0-52.0); Hemoglobin 13.7 g/dl (14.0-18.0); Imm Gran Abs Auto 0.03 X10*3/uL (0.00-0.03); Imm Gran Pct Auto 0.4 % (0.0-0.4); Lymphocytes Absolute Auto 1.8 X10*3/uL (1.2-4.9); Lymphocytes Percent Auto 22.9 % (20-40); Mean Corpuscular HGB Conc 31.9 g/dl (31.0-36.0); Mean Corpuscular Hemoglobin 24.2 pg (27.0-33.0); Mean Corpuscular Volume 75.8 fL (80.0-98.0); Mean Platelet Volume 8.8 fL (9.4-12.4); Monocytes Absolute Auto 0.6 X10*3/uL (0.1-1.2); Monocytes Percent Auto 8.3 % (2-11); Neutrophils Absolute Auto 4.8 x10*3/uL (2.0-8.3); Neutrophils Percent Auto 62.3 % (45-73); Platelet Count 261 X10*3/uL (160-400); Red Blood Count 5.66 X10*6/uL (4.60-5.80); Red Cell Distribution Width 15.3 % (11.0-16.0); White Blood Count 7.7 X10*3/uL (4.8-10.8)
[2022-05-04 15:11] LABS: INTERNATIONAL NORM RATIO 1.1 (0.9-1.1); Prothrombin Time 13.2 SEC (10.0-13.1)
[2022-05-04 15:23] LABS: Alanine Aminotransferase 337 U/L (0-40); Albumin Level 3.8 g/dL (3.5-5.0); Alkaline Phosphatase 466 U/L (39-117); Anion Gap 12 (12-20); Aspartate Amino Transferase 129 U/L (5-37); Blood Urea Nitrogen 7 mg/dL (9-16); C Reactive Protein 2.72 mg/dL (< or = 0.50); Carbon Dioxide 25 mmol/L (22-29); Chloride 103 mmol/L (96-108); Creatinine Clr Calc Pharmacy 133.4; Estimated Glomerular Filt Rate > 60; Ethanol < 10 mg/dL; Glucose Random 98 mg/dL (60-115); Lipase 40 U/L (8-78); Magnesium 1.9 mg/dL (1.6-2.6); Sodium 136 mmol/L (135-145); Total Protein 7.9 g/dL (6.5-8.0)
[2022-05-04 15:36] LABS: Troponin-I High Sensitivity < 3.5 ng/L (<3.5-35.0)
[2022-05-04 15:44] LABS: Erythrocyte Sedimentation Rate 30 MM/HR (0-15)
[2022-05-04 16:20] LABS: Appearance Urine Clear; Color Urine Yellow; Glucose Urine UA Negative (Negative); Leukocyte Esterase Urine Negative (Negative); Nitrite Urine Negative (Negative); UMIC TRIGGER UACC YES; Urine Blood Negative (Negative); Urine Ketones Negative (Negative); Urine Protein 30 (1+) mg/dL (Neg-Trace)
[2022-05-04 16:25] LABS: Bacteria Urine None Seen (None Seen); Hyaline Casts Urine 0-2 /LPF (0-2); RBC Urine 0-2 /HPF (0-2); Squamous Epithelial Cell Urine 0-2 /HPF (0-2); WBC Urine 0-5 /HPF (0-5)
[2022-05-04 16:50] VITALS: BP 147/87; PULSE 68; RESP 20; TEMP 36.8; O2SAT 99
[2022-05-04] MEDS: 0.9 % Sodium Chloride 1,000 ML 999 ML IVCONT (17:02)
[2022-05-04] MEDS: Morphine Sulfate 4 MG/ML CARTRIDGE IVPUSH (17:02)
[2022-05-04] MEDS: ondansetron HCL 4 MG/2 ML VIAL IVPUSH (17:02)
[2022-05-04] MEDS: iohexoL 350 MG/ML 100 ML INFUS..BTL IV (17:38)
[2022-05-04] MEDS: HYDROmorphone HCl 1 MG/ML SYRINGE IVPUSH (17:50)
[2022-05-04 19:34] VITALS: BP 140/87; PULSE 82; RESP 16; TEMP 36.6; O2SAT 96
== END 2022-05-04 19:39 | disposition home or self-care (01) ==
PROVIDERS: Physician Assistant Medical; Emergency Provider Emergency Medicine; PCP Internal Medicine
DX: R10.11 Right upper quadrant pain (principal); R07.89 Other chest pain; R79.89 Other specified abnormal findings of blood chemistry; Z79.899 Other long term (current) drug therapy
CPT/HCPCS: 36415; 71046; 74177; 76700; 80053; 81001; 82077; 83690; 83735; 84484; 85025; 85610; 85652; 86140; 93005; 96374; 96375; 99284; 99285; J1170; J2270; J2405; Q9967

== ENCOUNTER 2022-05-08 07:30 | Outpatient (REF) | payer OTHER, SELFPAY ==
[2022-05-08 08:54] LABS: Alanine Aminotransferase 324 U/L (0-40); Albumin Level 3.7 g/dL (3.5-5.0); Alkaline Phosphatase 565 U/L (39-117); Aspartate Amino Transferase 182 U/L (5-37); Bilirubin Direct 0.7 mg/dL (0.0-0.5); Bilirubin Total 1.1 mg/dL (0.0-1.0); Gamma Glutamyl Transpeptidase 926 U/L (11-51); Iron 48 mcg/dL (45-160); Percent Iron Saturation 18 % (15-50); Total Iron Binding Capacity 264 mcg/dL (228-428); Total Protein 7.7 g/dL (6.5-8.0); Unsaturated Iron Binding 216 ug/dL
[2022-05-08 08:58] LABS: Ferritin 236 ng/mL (20-250)
[2022-05-08 11:24] LABS: HBS Num1 175.63 mIU/mL (0-7.99); HBc Num1 0.09 S/CO (0.00-0.79); HBsAGNum1 0.27 S/CO (0.00-0.99); Hepatitis B Core Antibody Nonreactive (Nonreactive); Hepatitis B Surface Antigen Negative (Negative); ~HepC Num1 0.25 S/CO (0.00-0.79); ~Hepatitis B Surface Antibody REACTIVE (Nonreactive); ~Hepatitis C Antibody Nonreactive (Nonreactive)
[2022-05-09 13:09] LABS: Anti Nuclear Antibody Screen NEGATIVE (NEGATIVE)
[2022-05-09 13:49] LABS: Prot Elec - Albumin 3.6 g/dL (3.8-4.8); Prot Elec - Alpha1 0.4 g/dL (0.2-0.3); Prot Elec - Beta 1 0.4 g/dL (0.4-0.6); Prot Elec - Beta 2 0.5 g/dL (0.2-0.5); Prot Elec - Total Protein 7.8 g/dL (6.1-8.1)
[2022-05-09 17:58] LABS: Ceruloplasmin 41 mg/dL (18-36)
== END 2022-05-08 07:31 | disposition home or self-care (01) ==
LOC: HO.LAB 07:30
PROVIDERS: PCP Internal Medicine; Visit Provider Internal Medicine
DX: R79.89 Other specified abnormal findings of blood chemistry (principal)
CPT/HCPCS: 36415; 80076; 82390; 82728; 82977; 83540; 84165; 86038; 86039; 86255; 86256; 86704; 86706; 86803; 87340

== ENCOUNTER → 2022-05-17 07:31 | Outpatient (REF) | payer OTHER, SELFPAY ==
--- NOTE | ~2022-05-17 | NM_ITS ---
EXAMINATION: BILIARY TRACT IMAGING STUDY WITH CCK CLINICAL INFORMATION: A 31-year-old male with upper abdominal pain for 2 weeks. Other specified abnormal findings of blood chemistry.. COMPARISON: CT of the abdomen and pelvis and abdominal ultrasound done on 05/04/2022.. TECHNIQUE: Serial gamma scintillation camera images were obtained over the abdomen for a total observation period of 60 minutes following the intravenous administration of 5.0 mCi Tc-99m mebrofenin. FINDINGS: There is good concentration of activity in the liver by 5 minutes post injection. Biliary activity is visualized by 10 minutes. The gallbladder is well visualized by 20 minutes. Small bowel is well visualized by 20 minutes. At 60 minutes post radiopharmaceutical injection, a 30-minute infusion of 1.7 micrograms Sincalide was then begun and an additional 30 minutes of images were obtained. There is good emptying of the gallbladder. By the end of the study there is good clearance of activity from the liver and visualization of diffuse small bowel activity. The calculated gallbladder ejection fraction is 93% (normal gallbladder ejection fraction is greater than 35%). NM/NM hepatobiliary w pharm IMPRESSION: Visualization of the gallbladder is evidence of a patent cystic duct and strong evidence against the diagnosis of acute cholecystitis. The common bile duct is patent. Gallbladder emptying and ejection fraction are normal. Liver function appears normal.
== END ==
LOC: HO.NUCMED 07:31
PROVIDERS: PCP Internal Medicine; Visit Provider Internal Medicine Gastroenterology
DX: R10.12 Left upper quadrant pain (principal); R79.89 Other specified abnormal findings of blood chemistry
CPT/HCPCS: 78227; A9537; J2805

== ENCOUNTER 2022-05-22 11:58 | Outpatient (REF) | payer OTHER, SELFPAY ==
[2022-05-22 13:19] LABS: MANUAL DIFF FLAG NO
[2022-05-22 14:23] LABS: Basophils Absolute Auto 0.1 X10*3/uL (0.0-0.2); Eosinophils Absolute Auto 0.7 X10*3/uL (0.0-0.4); Eosinophils Percent Auto 8.3 % (0-4); Hematocrit 45.1 % (42.0-52.0); Hemoglobin 14.4 g/dl (14.0-18.0); Imm Gran Abs Auto 0.04 X10*3/uL (0.00-0.03); Imm Gran Pct Auto 0.5 % (0.0-0.4); Immature Retic Fraction 18.9 % (2.3-13.4); Lymphocytes Absolute Auto 2.6 X10*3/uL (1.2-4.9); Lymphocytes Percent Auto 32.4 % (20-40); Mean Corpuscular HGB Conc 31.9 g/dl (31.0-36.0); Mean Corpuscular Hemoglobin 24.9 pg (27.0-33.0); Mean Platelet Volume 9.7 fL (9.4-12.4); Monocytes Absolute Auto 0.7 X10*3/uL (0.1-1.2); Monocytes Percent Auto 8.1 % (2-11); Neutrophils Absolute Auto 4.1 x10*3/uL (2.0-8.3); Neutrophils Percent Auto 49.7 % (45-73); Platelet Count 309 X10*3/uL (160-400); Prothrombin Time 11.9 SEC (10.0-13.1); Red Blood Count 5.78 X10*6/uL (4.60-5.80); Red Cell Distribution Width 16.7 % (11.0-16.0); Retic HGB Equivalent 29.9 pg (30.0-35.0); Reticulocyte Percent 1.9 % (0.5-1.8); Reticulocytes Absolute 0.108 X10*6/uL (0.026-0.095); White Blood Count 8.2 X10*3/uL (4.8-10.8)
[2022-05-22 14:47] LABS: Bilirubin Direct 0.2 mg/dL (0.0-0.5)
[2022-05-22 15:01] LABS: Bilirubin Total 0.5 mg/dL (0.0-1.0)
[2022-05-22 15:03] LABS: Alanine Aminotransferase 122 U/L (0-40); Albumin Level 3.7 g/dL (3.5-5.0); Alkaline Phosphatase 344 U/L (39-117); Anion Gap 11 (12-20); Aspartate Amino Transferase 64 U/L (5-37); Bilirubin Direct 0.2 mg/dL (0.0-0.5); Bilirubin Total 0.5 mg/dL (0.0-1.0); Blood Urea Nitrogen 5 mg/dL (9-16); Calcium 9.2 mg/dL (8.4-10.2); Carbon Dioxide 26 mmol/L (22-29); Chloride 103 mmol/L (96-108); Estimated Glomerular Filt Rate > 60; Gamma Glutamyl Transpeptidase 684 U/L (11-51); Glucose Random 96 mg/dL (60-115); Iron 66 mcg/dL (45-160); Lipase 44 U/L (8-78); Percent Iron Saturation 24 % (15-50); Potassium 4.3 mmol/L (3.3-5.1); Sodium 136 mmol/L (135-145); Total Iron Binding Capacity 273 mcg/dL (228-428); Total Protein 7.6 g/dL (6.5-8.0); Unsaturated Iron Binding 207 ug/dL
[2022-05-22 15:14] LABS: Folate 13.2 ng/mL (> or = 4.0); Thyroid Stimulating Hormone 1.37 uIU/mL (0.32-4.0); Vitamin B12 625 pg/mL (200-900)
[2022-05-22 15:15] LABS: Ferritin 259 ng/mL (20-250); Folate 13.8 ng/mL (> or = 4.0); Free T4 (Free Thyroxine) 0.87 ng/dL (0.71-1.85); Vitamin B12 675 pg/mL (200-900)
[2022-05-22 15:26] LABS: Monotest Negative (Negative)
[2022-05-23 14:08] LABS: Alpha Fetoprotein 2.8 ng/mL (<6.1)
[2022-05-24 07:43] LABS: HIV AB/AG Nonreactive (Nonreactive)
[2022-05-24 13:24] LABS: Transglutaminase Ab IgG <1.0 U/mL; Transglutaminase IgA <1.0 U/mL
[2022-05-24 23:33] LABS: Smooth Muscle Antibody 25 U (<20)
[2022-05-25 13:03] LABS: Vitamin D 25-OH, D2 <4 ng/mL; Vitamin D 25-OH, D3 11 ng/mL; Vitamin D 25-OH, Total 11 ng/mL (30-100)
[2022-05-25 16:58] LABS: Vitamin A 30 mcg/dL (38-98)
[2022-05-25 20:48] LABS: Treponema pallidum Ab FTA ABS Reactive (Nonreactive)
== END 2022-05-22 11:59 | disposition home or self-care (01) ==
LOC: HO.LAB 11:58
PROVIDERS: Absent Provider Internal Medicine; PCP Internal Medicine; Visit Provider Nurse Practitioner Family
DX: Z11.4 Encounter for screening for human immunodeficiency virus [HIV] (principal); R10.9 Unspecified abdominal pain; R74.8 Abnormal levels of other serum enzymes; R19.7 Diarrhea, unspecified; R79.89 Other specified abnormal findings of blood chemistry; E55.9 Vitamin D deficiency, unspecified; K86.89 Other specified diseases of pancreas; R94.5 Abnormal results of liver function studies; R17 Unspecified jaundice; R10.12 Left upper quadrant pain; R19.5 Other fecal abnormalities
CPT/HCPCS: 36415; 80053; 80076; 82105; 82247; 82248; 82306; 82607; 82728; 82746; 82977; 83540; 83690; 84439; 84443; 84590; 85025; 85045; 85610; 86015; 86308; 86364; 86780; 87389

== ENCOUNTER 2022-05-31 08:02 | Outpatient (REF) | payer OTHER, SELFPAY ==
--- NOTE | ~2022-05-31 | MR_ITS ---
EXAMINATION: MR ABDOMEN WITHOUT AND WITH CONTRAST CLINICAL INFORMATION: Abnormal liver function tests COMPARISON: Previous ultrasound and CT April 2022 and hepatobiliary scan May 2022 TECHNIQUE: MR abdomen was performed without and with use of 9 mL intravenous Gadavist gadolinium contrast. Postcontrast images are performed in multiphase dynamic sequences. Imaging was performed in 3 planes. MRCP sequences were also performed. FINDINGS: LUNG BASES: The visualized lung bases are unremarkable. LIVER, GALLBLADDER, AND BILIARY TREE: The liver is normal in size, smooth in contour, and normal in signal. There are 2 small probable cysts in the liver measuring approximately 4 mm. No other focal hepatic lesion or biliary ductal dilatation is present. The gallbladder is unremarkable with no evidence of gallbladder wall thickening, or obvious pericholecystic inflammatory changes. The common bile duct measures 4 mm. No common bile duct stone is seen. PANCREAS: Unremarkable. SPLEEN: Normal. ADRENAL GLANDS: Normal. KIDNEYS AND URETERS: The kidneys are normal in size, shape, and enhance symmetrically. 1 cm cyst in the lower pole the left kidney. No imaging follow-up. No hydronephrosis. No perinephric stranding. GASTROINTESTINAL TRACT: No bowel obstruction. No ascites or fluid collection. ABDOMINAL WALL: No significant hernia is appreciated. LYMPH NODES: No lymphadenopathy. VASCULAR: Unremarkable. OSSEOUS STRUCTURES: Marrow signal normal. MR/MR abdomen wo/w con IMPRESSION: Left renal cyst and probable small liver cysts. Otherwise unremarkable exam.
== END 2022-05-31 08:03 | disposition home or self-care (01) ==
LOC: HO.MRI 08:02
PROVIDERS: Visit Provider Nurse Practitioner Family
DX: R10.12 Left upper quadrant pain (principal); R94.5 Abnormal results of liver function studies
CPT/HCPCS: 74183; A9585

== ENCOUNTER 2022-06-16 11:10 | Outpatient (REF) | payer OTHER, SELFPAY ==
[2022-06-19 08:10] LABS: Syphilis Screen Reactive (Nonreactive)
[2022-06-19 08:41] LABS: HIV AB/AG Nonreactive (Nonreactive); HIV Num 1 0.12 S/CO (0.00-0.99); ~Hepatitis C Antibody Nonreactive (Nonreactive)
[2022-06-19 16:29] LABS: TS Negative Control Passed; TS Panel A 1; TS Panel B 1; TS Positive Control Passed; TSpotTB Negative (Negative)
[2022-06-22 13:21] LABS: RPR Quantitative Reactive 1:64 (Nonreactive)
[2022-06-22 13:22] LABS: T.Pallidum Particle Agg Test Reactive (Nonreactive)
== END 2022-06-16 11:11 | disposition home or self-care (01) ==
LOC: HO.LAB 11:10
PROVIDERS: PCP Internal Medicine; Visit Provider Internal Medicine
DX: Z11.4 Encounter for screening for human immunodeficiency virus [HIV] (principal); Z11.1 Encounter for screening for respiratory tuberculosis; Z20.2 Contact with and (suspected) exposure to infections with a predominantly sexual mode of transmission; R59.0 Localized enlarged lymph nodes; A53.9 Syphilis, unspecified; B35.6 Tinea cruris
CPT/HCPCS: 36415; 86481; 86592; 86780; 86803; 87389; 90471; J0561

== ENCOUNTER 2022-06-19 13:41 | Outpatient (REF) | payer OTHER, SELFPAY ==
[2022-06-19 15:42] LABS: Alanine Aminotransferase 29 U/L (0-40); Albumin Level 4.3 g/dL (3.5-5.0); Alkaline Phosphatase 86 U/L (39-117); Aspartate Amino Transferase 21 U/L (5-37); Bilirubin Direct 0.2 mg/dL (0.0-0.5); Bilirubin Total 0.5 mg/dL (0.0-1.0); Total Protein 7.3 g/dL (6.5-8.0)
[2022-06-21 05:45] LABS: Syphilis Screen Reactive (Nonreactive)
[2022-06-22 21:13] LABS: Treponema pallidum Ab FTA ABS Reactive (Nonreactive)
[2022-06-26 16:44] LABS: RPR Quantitative Reactive 1:32 (Nonreactive); T.Pallidum Particle Agg Test Reactive (Nonreactive)
== END 2022-06-19 13:42 | disposition home or self-care (01) ==
LOC: HO.LAB 13:41
PROVIDERS: PCP Internal Medicine; Referring Provider Internal Medicine; Visit Provider Nurse Practitioner Family
DX: R10.9 Unspecified abdominal pain (principal); R94.5 Abnormal results of liver function studies; R79.89 Other specified abnormal findings of blood chemistry; K58.2 Mixed irritable bowel syndrome; Z20.2 Contact with and (suspected) exposure to infections with a predominantly sexual mode of transmission
CPT/HCPCS: 36415; 80076; 86592; 86780

== ENCOUNTER → 2022-06-23 10:43 | Outpatient (BNVA) | payer OTHER, SELFPAY | PROVIDERS: PCP Internal Medicine; Visit Provider Internal Medicine | DX: A53.9 Syphilis, unspecified (principal) | CPT/HCPCS: 90471; J0561 ==

== ENCOUNTER 2022-06-23 11:07 | Outpatient (REF) | payer OTHER, SELFPAY ==
[2022-06-23 12:10] LABS: Leukocytes Stool Qualitative NEGATIVE (NEGATIVE)
[2022-06-23 13:40] LABS: CDiff Gene PCR NEGATIVE (Negative)
[2022-06-28 21:53] LABS: Fecal Fat Qualitative Normal (Normal)
[2022-07-04 13:09] LABS: Pancreatic Elastase-1 >500 mcg/g
== END 2022-06-23 11:08 | disposition home or self-care (01) ==
LOC: HO.LNP 11:07
PROVIDERS: Visit Provider Nurse Practitioner Family
DX: R10.9 Unspecified abdominal pain (principal); R19.7 Diarrhea, unspecified
CPT/HCPCS: 82656; 82705; 87493; 89055

== ENCOUNTER → 2022-06-30 15:41 | Outpatient (BNVA) | payer OTHER, SELFPAY | PROVIDERS: PCP Internal Medicine; Visit Provider Internal Medicine | DX: A53.9 Syphilis, unspecified (principal) | CPT/HCPCS: 90471; J0561 ==

== ENCOUNTER 2023-05-24 11:18 | Outpatient (AMB) | payer OTHER, SELFPAY ==
[2023-05-24 11:25] VITALS: BP 140/86; PULSE 77; O2SAT 98; BMI 34.9
--- NOTE | 2023-05-24 11:25 | A.OFFPC_ITS ---
Vital Signs 05/24/23 11:25 Height 5 ft 6 in Weight 216 lb BMI 34.9 BP 140/86 H Blood Pressure Location Lt brachial Position Sitting Pulse 77 Pulse Source Pulse Oximeter Pulse Oximetry (%) 98 Oxygen Delivery Method Room Air Intake Visit Reasons: physical Intake Note: Patient is here today for a physical. 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 Last seen in August 2022 having history of syphilis and treated by the Infectious Disease specialist. Patient is here for physical exam. occ dizzy and had fevers, mass on the L ankle area - [facility] Medical History Asthma Generalized anxiety disorder Obesity (BMI 30-39.9) Syphilis Thrombocytopenia Surgical History No pertinent past surgical history Family History (Updated 08/15/22 @ 15:45 by Natalia Ludwig CMA) Father Depression Mother Hypertension Depression Paternal Grandmother Breast cancer Brother Eye cancer Maternal Grandmother Myocardial infarction Maternal Grandfather Substance abuse Cirrhosis Other Brain tumor Mental health disorder Social History (Updated 05/24/23 @ 11:54 by Kavya Nagy MD) Housing: Apartment Alcohol intake: current Alcohol intake frequency: does not drink Comment: QOD 2-3 drinks Patient Tobacco Use Status: Never used Tobacco Years Smoked: marijuana e-Cigarette/Vaping Use: Never Used Second Hand Smoke Exposure: No Substance Use Type: Marijuana Current occupational status: employed Cognitive needs: No Hearing needs: No Vision needs: No Questionnaire PHQ-9 Over the last 2 weeks, how often have you been bothered by any of the following problems? 1. Little interest or pleasure in doing things: several days 2. Feeling down, depressed, or hopeless: several days 3. Trouble falling or staying asleep, or sleeping too much: not at all 4. Feeling tired or having little energy: not at all 5. Poor appetite or overeating: not at all 6. Feeling bad about yourself - or that you are a failure or have let yourself or your family down: not at all 7. Trouble concentrating on things, such as reading the newspaper or watching television: not at all 8. Moving or speaking so slowly that other people could have noticed. Or the opposite - being so fidgety or restless that you have been moving around a lot more than usual: not at all 9. Thoughts that you would be better off or of hurting yourself in some way: not at all Total score: 2 Depression Screening Interpretation: Negative Depression Screening Done: Yes Source: Developed by Drs. Arnol Petersen, Yu Brian, Paulo Blake and colleagues, with an educational sharmila from [employer]. Thrive Questionnaire Date Thrive assessed: 05/24/23 I am a: Patient What is your living situation today?: I have a steady place to live Within the past 12 months, did the food you bought not last and you didn't have the money to get more?: Never true Within the past 12 months, did you worry whether your food would run out before you got money to buy more?: Never true Do you have trouble paying for medicines?: No Do you have trouble getting transportation to medical appointments?: No Do you have trouble paying your heating and electricity bill?: No Do you have trouble taking care of your child, family member or friend?: No Do you have trouble with day-to-day activities such as bathing, preparing meals, shopping, managing finances, etc.?: No Are you currently unemployed and looking for a job?: No Are you interested in more education?: No Please select the resources that you would like help with: None THRIVE Score: 0 AUDIT C Alcohol Use Questionnaire (AUDIT-C) 1. How often do you have a drink containing alcohol?: Monthly or less 2. How many drinks containing alcohol do you have on a typical day when you are drinking?: 1 or 2 3. How often do you have six or more drinks on one occasion?: Never Total Score: 1 CAMERON-7 AMB Questionnaire CAMERON-7 Date CAMERON - 7 assessed: 05/24/23 Feeling nervous, anxious, or on edge: 1 = Several days Not being able to stop or control worryin = Several days Worrying too much about different things: 0 = Not at all Trouble relaxin = Not at all Being so restless that it is hard to sit still: 0 = Not at all Becoming easily annoyed or irritable: 0 = Not at all Feeling afraid as if something awful might happen: 0 = Not at all Total CAMERON-7 score (0-4 normal; 5-9 mild; 10-14 moderate; 15-21 severe): 2 Source: Developed by Drs. Arnol Petersen, Yu Brian, Paulo Blake and colleagues, with an educational sharmila from [employer]. Review of Systems Const Denies poor appetite and Denies weakness Eyes Denies no additional complaints ENT Reports Normal hearing present, Denies dizziness, Denies nasal congestion, Denies tinnitus and Denies sore throat Card Denies chest pain, Denies syncope, Denies rapid heart rate and Denies dyspnea Resp Denies cough and Denies dyspnea GI Denies change in stool character, Reports constipation, Denies diarrhea, Denies nausea and Denies vomiting Denies dysuria and Denies urinary frequency Neuro Reports Normal hearing present, Denies confusion, Denies dizziness, Denies syncope and Denies weakness Psych Denies confusion Physical exam (Primary Care) Vital Signs: Last Vital Signs Pulse 77 05/24/23 11:25 BP 140/86 H 05/24/23 11:25 Pulse Ox 98 05/24/23 11:25 Oxygen Delivery Method Room Air 05/24/23 11:25 BMI result Body Mass Index 34.9 Tobacco/Smoking Status: Tobacco use Status Tobacco use date assessed 05/24/23 05/24/23 11:31 Patient Tobacco Use Status Never used Tobacco 05/24/23 11:31 e-Cigarette/Vaping Use Never Used 05/24/23 11:31 PHQ-9: PHQ-9 Score PHQ-9: Total score 2 05/24/23 11:31 Depression Screening Interpretation: Negative Thrive Assessment: Date of Thrive Assessment Date Thrive assessed 05/24/23 05/24/23 11:31 Const General: No confusion Orientation/consciousness: No confusion HENMT Head: Yes normocephalic Ears: external ears normal and TM's normal bilaterally Face and sinus: Yes normal facial exam Mouth: moist mucous membranes Throat: Yes tonsils normal Eyes Conjunctivae: conjunctivae normal Pupils: Equal, round and reactive pupils present and Pupil accommodation reflex normal Direct Ophthalmoscopy: normal light reflex Neck Neck: No lymphadenopathy Thyroid: Thyroid normal Chest Chest palpation & inspection: normal inspection of the chest Resp Effort & Inspection: normal respiratory effort and no audible wheezes Auscultation: clear to auscultation bilaterally, no crackles, no wheezes and lung sounds not diminished Cardio Rate: regular rate Rhythm: regular rhythm Peripheral pulses: radial pulses present and dorsalis pedis present GI Palpation (GI): no masses Auscultation: normal bowel sounds and normoactive bowel sounds Rectal Exam - Male: Yes deferred Skin General skin exam: no rashes or lesions noted Rashes: no rashes Neuro General: No confusion Cranial nerves: Yes Equal, round and reactive pupils present and Yes Normal hearing present Cognition (Neuro): normal cognition Gait exam (Neuro): Normal gait present Motor exam (neuro): 5/5 motor strength present throughout Deep tendon reflexes (DTR's): Right brachioradialis reflex intensity grade: 2+, Left brachioradialis reflex intensity grade: 2+, Right patellar reflex intensity grade: 2+ and Left patellar reflex intensity grade: 2+ Extrem General: No edema Assessment and Plan Assessment & Plan (1) Annual physical exam: Code(s): Z00.00 - Encounter for general adult medical examination without abnormal findings (2) Obesity (BMI 30-39.9): Code(s): E66.9 - Obesity, unspecified Plan: Diet and exercise (3) Asthma: Code(s): J45.909 - Unspecified asthma, uncomplicated Plan: Stable (4) Generalized anxiety disorder: Code(s): F41.1 - Generalized anxiety disorder Plan: Stable and has planned vacation to [place] (5) Blood pressure elevated without history of HTN: Code(s): R03.0 - Elevated blood-pressure reading, without diagnosis of hypertension (6) Ganglion cyst of both ankles: Comment: L ankle only Code(s): M67.471 - Ganglion, right ankle and foot; M67.472 - Ganglion, left ankle and foot Plan: L ankle only and reassurance (7) Insomnia: Code(s): G47.00 - Insomnia, unspecified Plan: gtrial of melatonin Medications: New blood pressure monitor (Blood Pressure Kit) As directed 1 ea 0RF R03.0 - Elevated blood-pressure reading, without diagnosis of hypertension Coding Level of Care Code Est Pt Prev Care 18-39y([id number]) Diagnoses Annual physical exam Z00.00 Obesity (BMI 30-39.9) E66.9 Asthma J45.909 Generalized anxiety disorder F41.1 Blood pressure elevated without history of HTN R03.0 Ganglion cyst of both ankles M67.471; M67.472 Insomnia G47.00
== END 2023-05-24 12:11 | disposition home or self-care (01) ==
PROVIDERS: Visit Provider Internal Medicine
DX: Z00.00 Encounter for general adult medical examination without abnormal findings (principal); E66.9 Obesity, unspecified; Z68.34 Body mass index [BMI] 34.0-34.9, adult; J45.909 Unspecified asthma, uncomplicated; F41.1 Generalized anxiety disorder; R03.0 Elevated blood-pressure reading, without diagnosis of hypertension; M67.471 Ganglion, right ankle and foot; M67.472 Ganglion, left ankle and foot; G47.00 Insomnia, unspecified
CPT/HCPCS: 99395

== ENCOUNTER 2024-02-06 09:22 | Outpatient (AMB) | payer SELFPAY ==
[2024-02-06 09:31] VITALS: BP 138/74; PULSE 63; O2SAT 98; BMI 33.6
--- NOTE | 2024-02-06 09:31 | MHC.PC.OV ---
Vital Signs 02/06/24 09:31 Height 5 ft 6 in Weight 208 lb BMI 33.6 BP 138/74 Blood Pressure Location Lt brachial Position Sitting Pulse 63 Pulse Source Pulse Oximeter Pulse Oximetry (%) 98 Oxygen Delivery Method Room Air Intake Visit Reasons: ncreased anxiety and difficulty sleeping Allergies No Known Allergies Allergy (Verified 05/24/23 11:25) Medication List - Last Reconciled 02/06/24 by Ayanna Ellis PA-C blood pressure monitor (Blood Pressure Kit) As directed Tobacco use date assessed: 05/24/23 Dental Screening Dental Screen Date: 05/24/23 HPI ncreased anxiety and difficulty sleeping HPI Details 33-year-old obese male with generalized anxiety disorder and asthma last seen by Dr. Nagy May 2023 coming in for acute problem. Today he tells us he has always struggled with anxiety and depression and has not been on medication for this in the past and declines the need for a counselor at this time. He has been working with a counselor through work and finds good benefit from this. In the last few months he has noticed the anxiety and depression has been increased and uncontrollable and is now affecting his sleep. Most nights he has difficulty falling asleep and staying asleep. [facility] Medical History Syphilis Obesity (BMI 30-39.9) Thrombocytopenia Generalized anxiety disorder Asthma Surgical History No pertinent past surgical history Family History Father Depression Mother Hypertension Depression Paternal Grandmother Breast cancer Brother Eye cancer Maternal Grandmother Myocardial infarction Maternal Grandfather Substance abuse Cirrhosis Other Brain tumor Mental health disorder Social History Housing: Apartment Alcohol intake: current Alcohol intake frequency: does not drink Comment: QOD 2-3 drinks Patient Tobacco Use Status: Never used Tobacco Years Smoked: marijuana e-Cigarette/Vaping Use: Never Used Second Hand Smoke Exposure: No Substance Use Type: Marijuana Current occupational status: employed Cognitive needs: No Hearing needs: No Vision needs: No Questionnaire PHQ-9 Over the last 2 weeks, how often have you been bothered by any of the following problems? 1. Little interest or pleasure in doing things: several days 2. Feeling down, depressed, or hopeless: several days 3. Trouble falling or staying asleep, or sleeping too much: nearly every day 4. Feeling tired or having little energy: several days 5. Poor appetite or overeating: several days 6. Feeling bad about yourself - or that you are a failure or have let yourself or your family down: several days 7. Trouble concentrating on things, such as reading the newspaper or watching television: several days 8. Moving or speaking so slowly that other people could have noticed. Or the opposite - being so fidgety or restless that you have been moving around a lot more than usual: nearly every day 9. Thoughts that you would be better off or of hurting yourself in some way: not at all Total score: 12 Source: Developed by Drs. Arnol Petersen, Yu Brian, Paulo Blake and colleagues, with an educational sharmila from [employer]. Thrive Questionnaire Date Thrive assessed: 05/24/23 AUDIT C Alcohol Use Questionnaire (AUDIT-C) 1. How often do you have a drink containing alcohol?: Monthly or less 2. How many drinks containing alcohol do you have on a typical day when you are drinking?: 1 or 2 3. How often do you have six or more drinks on one occasion?: Never Total Score: 1 CAMERON-7 AMB Questionnaire CAMERON-7 Date CAMERON - 7 assessed: 05/24/23 Feeling nervous, anxious, or on edge: 1 = Several days Not being able to stop or control worryin = Nearly every day Worrying too much about different things: 3 = Nearly every day Trouble relaxin = Nearly every day Being so restless that it is hard to sit still: 3 = Nearly every day Becoming easily annoyed or irritable: 0 = Not at all Feeling afraid as if something awful might happen: 1 = Several days Total CAMERON-7 score (0-4 normal; 5-9 mild; 10-14 moderate; 15-21 severe): 14 Source: Developed by Drs. Arnol Petersen, Yu Brian, Paulo Blake and colleagues, with an educational sharmila from [employer]. CAMERON-7 Assessment Billing CAMERON-7 Assessment Tool: CAMERON-7 Assessment 24621 Review of Systems Const Denies fever(s), Denies headache(s) and Denies poor appetite Eyes Reports no additional complaints ENT Denies headache(s) Card Denies chest pain, Denies lightheadedness and Denies dyspnea Resp Denies dyspnea GI Denies abdominal pain, Denies nausea and Denies vomiting Reports no additional complaints Musc Reports no additional complaints and Denies abnormal gait Skin/Breast Reports system reviewed and no additional complaints, except as documented Neuro Denies abnormal gait and Denies headache(s) Psych Reports as per HPI Physical exam (Primary Care) Vital Signs: Last Vital Signs Pulse 63 02/06/24 09:31 BP 138/74 02/06/24 09:31 Pulse Ox 98 02/06/24 09:31 Oxygen Delivery Method Room Air 02/06/24 09:31 BMI result Body Mass Index 33.6 Tobacco/Smoking Status: Tobacco use Status Tobacco use date assessed 05/24/23 02/06/24 09:31 Patient Tobacco Use Status Never used Tobacco 02/06/24 09:31 e-Cigarette/Vaping Use Never Used 02/06/24 09:31 PHQ-9: PHQ-9 Score PHQ-9: Total score 12 02/06/24 09:41 Thrive Assessment: Date of Thrive Assessment Date Thrive assessed 05/24/23 02/06/24 09:31 Const General: cooperative, healthy appearing, comfortable and no acute distress Orientation/consciousness: patient oriented x3 HENMT Head: Yes normocephalic Ears: hearing grossly normal bilaterally General nose exam: Normal external nose present Eyes General: appearance normal, both eyes and all related structures Conjunctivae: conjunctivae normal Neck Neck: Yes full ROM and Yes no lymphadenopathy Resp Effort & Inspection: normal respiratory effort Auscultation: clear to auscultation bilaterally, no crackles, no rales, no rhonchi and no wheezes Cardio Rate: regular rate Rhythm: regular rhythm Skin General skin exam: no rashes or lesions noted Neuro General: patient oriented x3 Gait exam (Neuro): Normal gait present Extrem General: Yes normal to inspection, Yes full ROM and No edema Psych Affect: normal affect Attitude: cooperative Insight: Good insight present (Psych) Judgement: Good judgement present (Psych) Coding Level of Care Code Est Pt Level 3 (69036) Diagnoses Insomnia G47.00 Obesity (BMI 30-39.9) E66.9 Generalized anxiety disorder F41.1 Additional Codes CAMERON-7 Assessment Billing - CAMERON-7 Assessment Tool: CAMERON-7 Assessment 42285 ([id number]) Assessment & Plan Assessment & Plan (1) Insomnia: Code(s): G47.00 - Insomnia, unspecified Category: Medical Plan: Patient states he has difficulty falling asleep and staying asleep we will trial trazodone 50 mg as needed for sleep. Advised patient to cut the pill in half to 25 mg for the 1st few days and then may proceed to 50 mg. Follow up in 2 months. (2) Obesity (BMI 30-39.9): Code(s): E66.9 - Obesity, unspecified Category: Medical Plan: Healthy diet and regular exercise is encouraged. (3) Generalized anxiety disorder: Code(s): F41.1 - Generalized anxiety disorder Category: Medical Plan: Patient feels his anxiety has been increased and is looking for a medication for breakthrough anxiety and is not interested in scheduled maintenance medications. We will trial hydroxyzine as needed discussed side effects of this medication and we will follow up in 2 months. Plan This note was constructed using voice recognition software. While every effort has been made to ensure accuracy and electric motor tester assembler, still areas may have been included sometimes these areas may affect the content or meeting of the given symptoms. Total time spent caring for the patient today was 30 minutes. This includes time spent before the visit reviewing the chart, time spent during the visit, and time spent after the visit and documentation. Medications: New trazodone 50 mg PO BEDTIME 30 tabs 2RF sleep hydroxyzine HCl 25 mg PO TID PRN 20 tabs 0RF anxiety
== END 2024-02-06 09:59 | disposition home or self-care (01) ==
PROVIDERS: PCP Internal Medicine
DX: G47.00 Insomnia, unspecified (principal); E66.9 Obesity, unspecified; F41.1 Generalized anxiety disorder; Z68.33 Body mass index [BMI] 33.0-33.9, adult

== ENCOUNTER → 2024-02-06 09:22 | Outpatient (BNVA) | payer SELFPAY | PROVIDERS: PCP Internal Medicine | DX: G47.00 Insomnia, unspecified (principal); F41.1 Generalized anxiety disorder; E66.9 Obesity, unspecified; Z68.33 Body mass index [BMI] 33.0-33.9, adult | CPT/HCPCS: 96127; 99212 ==

== ENCOUNTER 2024-04-07 13:25 | Outpatient (AMB) | payer BC, SELFPAY ==
--- NOTE | 2024-04-07 13:26 | A.OFFPC_ITS ---
Intake Visit Reasons: f/u meds televisit Allergies No Known Allergies Allergy (Verified 04/07/24 13:26) Medication List - Last Reconciled 04/07/24 by Ayanna Ellis PA-C blood pressure monitor (Blood Pressure Kit) As directed hydroxyzine HCl 25 mg PO TID PRN Tobacco use date assessed: 04/07/24 Dental Screening Dental Screen Date: 04/07/24 Did you have a dental visit in the last 12 months?: No Did you have a dental problem in the last 6 months where you did not have access to dental care?: No Was dental information given to patient?: Patient has dentist HPI f/u meds televisit HPI Details 33-year-old male with past medical histo ry of generalized anxiety disorder and asthma last seen January 2024 coming in for follow up.?At his last visit patient was started on trazodone at bedtime and hydroxyzine as needed for anxiety and is presenting today via telehealth for follow up. He tells us he does not feel the trazodone was very helpful and feels a ?hangover effect? in the morning after taking this medication. He has been using the hydroxyzine at bedtime for sleep and finds this helpful however does not keep him asleep throughout the night. He has occasionally used hydroxyzine throughout the day for anxiety which works well for him but he will not take it if he is going out because it causes drowsiness. He does mentioned he still has anxiety and difficulty sleeping. [facility] Medical History Syphilis Obesity (BMI 30-39.9) Thrombocytopenia Generalized anxiety disorder Asthma Surgical History No pertinent past surgical history Family History Father Depression Mother Hypertension Depression Paternal Grandmother Breast cancer Brother Eye cancer Maternal Grandmother Myocardial infarction Maternal Grandfather Substance abuse Cirrhosis Other Brain tumor Mental health disorder Social History Housing: Apartment Alcohol intake: current Alcohol intake frequency: does not drink Comment: QOD 2-3 drinks Patient Tobacco Use Status: Never used Tobacco Years Smoked: marijuana e-Cigarette/Vaping Use: Never Used Second Hand Smoke Exposure: No Substance Use Type: Marijuana Current occupational status: employed Cognitive needs: No Hearing needs: No Vision needs: No Questionnaire PHQ-9 Over the last 2 weeks, how often have you been bothered by any of the following problems? 1. Little interest or pleasure in doing things: several days 2. Feeling down, depressed, or hopeless: several days 3. Trouble falling or staying asleep, or sleeping too much: nearly every day 4. Feeling tired or having little energy: several days 5. Poor appetite or overeating: several days 6. Feeling bad about yourself - or that you are a failure or have let yourself or your family down: several days 7. Trouble concentrating on things, such as reading the newspaper or watching television: several days 8. Moving or speaking so slowly that other people could have noticed. Or the opposite - being so fidgety or restless that you have been moving around a lot more than usual: nearly every day 9. Thoughts that you would be better off or of hurting yourself in some way: not at all Total score: 12 Source: Developed by Drs. Arnol Petersen, Yu Brian, Paulo Blake and colleagues, with an educational sharmila from [employer]. Thrive Questionnaire Date Thrive assessed: 04/07/24 I am a: Patient What is your living situation today?: I have a steady place to live Within the past 12 months, did the food you bought not last and you didn't have the money to get more?: Never true Within the past 12 months, did you worry whether your food would run out before you got money to buy more?: Never true Do you have trouble paying for medicines?: No Do you have trouble getting transportation to medical appointments?: No Do you have trouble paying your heating and electricity bill?: No Do you have trouble taking care of your child, family member or friend?: No Do you have trouble with day-to-day activities such as bathing, preparing meals, shopping, managing finances, etc.?: No Are you currently unemployed and looking for a job?: No Are you interested in more education?: No Please select the resources that you would like help with: None THRIVE Score: 0 AUDIT C Alcohol Use Questionnaire (AUDIT-C) 1. How often do you have a drink containing alcohol?: Monthly or less 2. How many drinks containing alcohol do you have on a typical day when you are drinking?: 1 or 2 3. How often do you have six or more drinks on one occasion?: Never Total Score: 1 CAMERON-7 AMB Questionnaire CAMERON-7 Date CAMERON - 7 assessed: 04/07/24 Feeling nervous, anxious, or on edge: 1 = Several days Not being able to stop or control worryin = Nearly every day Worrying too much about different things: 3 = Nearly every day Trouble relaxin = Nearly every day Being so restless that it is hard to sit still: 3 = Nearly every day Becoming easily annoyed or irritable: 0 = Not at all Feeling afraid as if something awful might happen: 1 = Several days Total CAMERON-7 score (0-4 normal; 5-9 mild; 10-14 moderate; 15-21 severe): 14 Source: Developed by Drs. Arnol Petersen, Yu Brian, Paulo Blake and colleagues, with an educational sharmila from [employer]. CAMERON-7 Assessment Billing CAMERON-7 Assessment Tool: CAMERON-7 Assessment 41420 Review of Systems Eyes Reports dry eyes ENT Reports no additional complaints Card Denies chest pain, Denies leg edema, Denies lightheadedness and Denies dyspnea Resp Denies dyspnea GI Denies abdominal pain, Denies diarrhea, Denies nausea and Denies vomiting Denies oliguria, Denies difficulty urinating and Denies dysuria Skin/Breast Reports system reviewed and no additional complaints, except as documented Physical exam (Primary Care) Vital Signs: Deferred due to nature of telehealth visit Tobacco/Smoking Status: Tobacco use Status Tobacco use date assessed 05/24/23 02/06/24 09:58 Patient Tobacco Use Status Never used Tobacco 02/06/24 09:58 e-Cigarette/Vaping Use Never Used 02/06/24 09:58 Thrive Assessment: Date of Thrive Assessment Date Thrive assessed 05/24/23 02/06/24 09:58 Telehealth Telehealth Telehealth Platform: Telephone Location of provider rendering services: practice address Location of patient: address on file Patient Identification confirmed using: Name, : Yes Telehealth method: voice only Patient verbally consented to treatment: Yes Patient verbally consented to billing insurance company: Yes Patient informed of any privacy concerns related to visit: Yes Coding Level of Care Code Tele Est Pt Level 3 (19186) Diagnoses Insomnia G47.00 Obesity (BMI 30-39.9) E66.9 Generalized anxiety disorder F41.1 Additional Codes CAMERON-7 Assessment Billing - CAMERON-7 Assessment Tool: CAMERON-7 Assessment 32878 ([id number]) Assessment & Plan Assessment & Plan (1) Insomnia: Code(s): G47.00 - Insomnia, unspecified Category: Medical Plan: Patient complaining of insomnia has not been using the trazodone due to side effects. We will increase hydroxyzine to 50 mg at bedtime as the 25 mg was helping asleep. Discussed side effects of hydroxyzine and when to present for re-evaluation. (2) Obesity (BMI 30-39.9): Code(s): E66.9 - Obesity, unspecified Category: Medical Plan: Healthy diet and regular exercise is encouraged. (3) Generalized anxiety disorder: Code(s): F41.1 - Generalized anxiety disorder Category: Medical Plan: Patient has been using hydroxyzine 25 mg as needed and finds this helpful. Continue on this prescription at this time. Declining maintenance medication bu t can consider BuSpar if hydroxyzine does not manage anxiety. Plan This note was constructed using voice recognition software. While every effort has been made to ensure accuracy and prison librarian, still areas may have been included sometimes these areas may affect the content or meeting of the given symptoms. Total time spent caring for the patient today was 20 minutes. This includes time spent before the visit reviewing the chart, time spent during the visit, and time spent after the visit and documentation. Medications: New hydroxyzine HCl 50 mg PO BEDTIME 30 tabs 2RF Changed From hydroxyzine HCl 25 mg PO TID PRN 20 tabs 0RF anxiety To hydroxyzine HCl 25 mg PO ONCE PRN 20 tabs 0RF anxiety Discontinued trazodone Discontinued Reason: Patient no longer taking 50 mg PO BEDTIME 30 tabs 2RF sleep
== END 2024-04-07 14:03 | disposition home or self-care (01) ==
LOC: HO.HMCH 13:25
PROVIDERS: PCP Internal Medicine
DX: G47.00 Insomnia, unspecified (principal); E66.9 Obesity, unspecified; F41.1 Generalized anxiety disorder

== ENCOUNTER → 2024-04-07 13:25 | Outpatient (BNVA) | payer BC, SELFPAY | PROVIDERS: PCP Internal Medicine | DX: G47.00 Insomnia, unspecified (principal); E66.9 Obesity, unspecified; F41.1 Generalized anxiety disorder | CPT/HCPCS: 96127 ==

== ENCOUNTER 2024-05-27 10:43 | Outpatient (AMB) | payer BC, SELFPAY ==
--- NOTE | 2024-05-27 10:57 | MHC.PC.OV ---
Vital Signs 05/27/24 10:59 Height 5 ft 6 in Weight 224 lb BMI 36.2 BP 132/80 Blood Pressure Location Lt brachial Position Sitting Pulse 66 Pulse Source Pulse Oximeter Pulse Oximetry (%) 98 Oxygen Delivery Method Room Air Intake Visit Reasons: pe Allergies No Known Allergies Allergy (Verified 05/27/24 11:00) Medication List - Last Reconciled 05/27/24 by Kavya Nagy MD blood pressure monitor (Blood Pressure Kit) As directed hydroxyzine HCl 50 mg PO BEDTIME Tobacco use date assessed: 05/27/24 Dental Screening Dental Screen Date: 05/27/24 Did you have a dental visit in the last 12 months?: Yes Did you have a dental problem in the last 6 months where you did not have access to dental care?: No Was dental information given to patient?: Patient has dentist HPI pe HPI Details The patient is a 33-year-old male presenting with concerns related to obesity and associated weight gain. The patient reports a 16-pound weight gain since the last visit and expresses difficulty in losing weight despite being physically active and attempting dietary modifications. There is a history of asthma, though the patient does not currently use inhalers, and generalized anxiety disorder for which the patient is prescribed hydroxyzine. The patient experiences insomnia, worsened by anxiety-related thoughts at bedtime. The use of trazodone was ceased due to its undesirable side effects, favoring hydroxyzine, which provided partial relief. The patient reports a past diagnosis of microcytic anemia discovered during last year's blood work. The patient has no current anemia, but microcytosis was noted. Recent imaging identified two liver cysts and splenomegaly. He has not experienced symptoms such as abdominal pain or gastrointestinal bleeding. Elevated liver enzymes discovered last year prompted extensive investigation, including MRIs and ultrasounds, which failed to identify any structural causes. The previous workup also showed normal renal function, normal electrolyte balance, and normal iron levels, while vitamin levels A and D were not recorded. In terms of familial history, the patient's grandmother had breast cancer, and his brother had eye cancer. The patient's mother is undergoing evaluation for potential esophageal pathology and has a significant smoking history. - Emphasis on diet and exercise as a strategy for weight management. - Discussion around smoking marijuana and potential health impacts. - Recommendation for fasting blood work for sugar, kidney, and liver function. - Consideration of weight management pharmacotherapy with [facility] or [facility]ep[facility]. - Encouragement of seasonal vitamin D supplementation through spring and summer. - Discussed potential heartburn management through dietary changes. - Importance of staying up to date with vaccinations, including tetanus. - Discussion of reducing alcohol intake. 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 - Engages in dancing frequently as a form of exercise. - Reports weekend alcohol consumption, typically four beers. - Marijuana use noted but stated as not affecting eating habits. - Family history notes significant health issues. - Currently exploring nutritional counseling, previously found ineffective. - General: Reports weight gain despite exercise, fatigue. - Respiratory: Denies frequent asthma symptoms, occasional need for father's inhaler. - Cardiovascular: Occasionally feels chest heaviness when stressed. - Gastrointestinal: Reports symptoms of gastroeosphageal reflux dependent on diet. - Genitourinary: Denies frequent nocturia, reports once per night. - Musculoskeletal: Reports lower back pain, improved but persists with weight loss. - Neurological: Reports hand tingling, potentially associated with mild fibromyalgia. - Dermatological: Reports fungal rash managed with lotion. - Labs: Historical microcytic anemia without current anemia, elevated liver function tests. - Imaging: Abdominal MRI negative aside from liver cysts, ultrasound indicating mild splenomegaly. [facility], LATER [facility] Medical History Syphilis Obesity (BMI 30-39.9) Thrombocytopenia Generalized anxiety disorder Asthma Surgical History No pertinent past surgical history Family History Father Depression Mother Hypertension Depression Paternal Grandmother Breast cancer Brother Eye cancer Maternal Grandmother Myocardial infarction Maternal Grandfather Substance abuse Cirrhosis Other Brain tumor Mental health disorder Social History (Updated 05/27/24 @ 11:23 by Kavya Nagy MD) Housing: Apartment Alcohol intake: current Alcohol intake frequency: does not drink Comment: weekend beers at one time Patient Tobacco Use Status: Never used Tobacco Tobacco use type: Cigarette Years Smoked: marijuana e-Cigarette/Vaping Use: Never Used Second Hand Smoke Exposure: No Substance Use Type: Marijuana Current occupational status: employed Cognitive needs: No Hearing needs: No Vision needs: No Questionnaire PHQ-9 Over the last 2 weeks, how often have you been bothered by any of the following problems? 1. Little interest or pleasure in doing things: several days 2. Feeling down, depressed, or hopeless: several days 3. Trouble falling or staying asleep, or sleeping too much: several days 4. Feeling tired or having little energy: several days 5. Poor appetite or overeating: not at all 6. Feeling bad about yourself - or that you are a failure or have let yourself or your family down: several days 7. Trouble concentrating on things, such as reading the newspaper or watching television: several days 8. Moving or speaking so slowly that other people could have noticed. Or the opposite - being so fidgety or restless that you have been moving around a lot more than usual: not at all 9. Thoughts that you would be better off or of hurting yourself in some way: not at all Total score: 6 Depression Screening Interpretation: Positive Depression Screening Done: Yes 43390 - PHQ-9 Billing: Yes Source: Developed by Drs. Arnol Petersen, Yu Brian, Paulo Blake and colleagues, with an educational sharmila from [employer]. Thrive Questionnaire Date Thrive assessed: 05/27/24 I am a: Patient What is your living situation today?: I have a steady place to live Within the past 12 months, did the food you bought not last and you didn't have the money to get more?: Sometimes True Within the past 12 months, did you worry whether your food would run out before you got money to buy more?: Sometimes True Do you have trouble paying for medicines?: Yes Do you have trouble getting transportation to medical appointments?: No Do you have trouble paying your heating and electricity bill?: Yes Do you have trouble taking care of your child, family member or friend?: No Do you have trouble with day-to-day activities such as bathing, preparing meals, shopping, managing finances, etc.?: No Are you currently unemployed and looking for a job?: No Are you interested in more education?: Yes Please select the resources that you would like help with: Food, Paying for medicine and Utilities Currently or been in a relationship where the following occur: No concerns reported THRIVE Score: 3 AUDIT C Alcohol Use Questionnaire (AUDIT-C) 1. How often do you have a drink containing alcohol?: Monthly or less 2. How many drinks containing alcohol do you have on a typical day when you are drinking?: 3 or 4 3. How often do you have six or more drinks on one occasion?: Less than monthly Total Score: 3 CAMERON-7 AMB Questionnaire CAMERON-7 Date CAMERON - 7 assessed: 05/27/24 Feeling nervous, anxious, or on edge: 1 = Several days Not being able to stop or control worryin = Several days Worrying too much about different things: 1 = Several days Trouble relaxin = Several days Being so restless that it is hard to sit still: 1 = Several days Becoming easily annoyed or irritable: 0 = Not at all Feeling afraid as if something awful might happen: 1 = Several days Total CAMERON-7 score (0-4 normal; 5-9 mild; 10-14 moderate; 15-21 severe): 6 Source: Developed by Drs. Aronl Petersen, Yu Brian, Paulo Blake and colleagues, with an educational sharmila from [employer]. Review of Systems Const Denies poor appetite and Denies weakness Eyes Denies no additional complaints ENT Reports Normal hearing present, Denies dizziness, Denies nasal congestion, Denies tinnitus and Denies sore throat Card Denies chest pain, Denies syncope, Denies rapid heart rate and Denies dyspnea Resp Denies cough and Denies dyspnea GI Denies change in stool character, Reports constipation, Denies diarrhea, Denies nausea and Denies vomiting Denies dysuria and Denies urinary frequency Neuro Reports Normal hearing present, Denies confusion, Denies dizziness, Denies syncope and Denies weakness Psych Denies confusion Physical exam (Primary Care) Vital Signs: Last Vital Signs Pulse 66 05/27/24 10:59 BP 132/80 05/27/24 10:59 Pulse Ox 98 05/27/24 10:59 Oxygen Delivery Method Room Air 05/27/24 10:59 BMI result Body Mass Index 36.2 Tobacco/Smoking Status: Tobacco use Status Tobacco use date assessed 05/27/24 05/27/24 11:04 Patient Tobacco Use Status Never used Tobacco 05/27/24 10:58 Tobacco use type Cigarette 05/27/24 11:04 e-Cigarette/Vaping Use Never Used 05/27/24 10:58 PHQ-9: PHQ-9 Score PHQ-9: Total score 6 05/27/24 11:04 Depression Screening Interpretation: Positive Thrive Assessment: Date of Thrive Assessment Date Thrive assessed 05/27/24 05/27/24 11:04 Currently or been in a relationship where the following occur: No concerns reported Const General: No confusion Orientation/consciousness: No confusion HENMT Head: Yes normocephalic Ears: external ears normal and TM's normal bilaterally Face and sinus: Yes normal facial exam Mouth: moist mucous membranes Throat: Yes tonsils normal Eyes Conjunctivae: conjunctivae normal Pupils: Equal, round and reactive pupils present and Pupil accommodation reflex normal Direct Ophthalmoscopy: normal light reflex Neck Neck: No lymphadenopathy Thyroid: Thyroid normal Chest Chest palpation & inspection: normal inspection of the chest Resp Effort & Inspection: normal respiratory effort and no audible wheezes Auscultation: clear to auscultation bilaterally, no crackles, no wheezes and lung sounds not diminished Cardio Rate: regular rate Rhythm: regular rhythm Peripheral pulses: radial pulses present and dorsalis pedis present GI Palpation (GI): no masses Auscultation: normal bowel sounds and normoactive bowel sounds Rectal Exam - Male: Yes deferred Back/Spine/Pelvis Back/spine/pelvis image: 1. multiple 1-2 cm round hyperpigmented raised rash with coalescense and mild scaliness lower back Skin General skin exam: no rashes or lesions noted Rashes: no rashes Neuro General: No confusion Cranial nerves: Yes Equal, round and reactive pupils present and Yes Normal hearing present Cognition (Neuro): normal cognition Gait exam (Neuro): Normal gait present Motor exam (neuro): 5/5 motor strength present throughout Deep tendon reflexes (DTR's): Right brachioradialis reflex intensity grade: 2+, Left brachioradialis reflex intensity grade: 2+, Right patellar reflex intensity grade: 2+ and Left patellar reflex intensity grade: 2+ Extrem General: No edema Coding Level of Care Code Est Pt Prev Care 18-39y(30225) Diagnoses Annual physical exam Z00.00 Obesity (BMI 30-39.9) E66.9 Asthma J45.909 Generalized anxiety disorder F41.1 LFT elevation R79.89 Insomnia G47.00 Peripheral neuropathy G62.9 Tinea corporis B35.4 Additional Codes PHQ-9 - 72214 - PHQ-9 Billing: Yes ([id number]) Assessment & Plan Assessment & Plan (1) Annual physical exam: Code(s): Z00.00 - Encounter for general adult medical examination without abnormal findings Category: Medical Plan: Patient is advised to eat healthy, keep well hydrated, keep active and have adequate sleep. (2) Obesity (BMI 30-39.9): Code(s): E66.9 - Obesity, unspecified Category: Medical Plan: Diet and exercise (3) Asthma: Code(s): J45.909 - Unspecified asthma, uncomplicated Category: Medical Plan: Stable without inhalers (4) Generalized anxiety disorder: Code(s): F41.1 - Generalized anxiety disorder Category: Medical Plan: Continue with present medication (5) LFT elevation: Code(s): R79.89 - Other specified abnormal findings of blood chemistry Category: Medical Plan: Patient has had an extensive workup which was negative. (6) Insomnia: Code(s): G47.00 - Insomnia, unspecified Category: Medical Plan: Placed on hydroxyzine (7) Peripheral neuropathy: Code(s): G62.9 - Polyneuropathy, unspecified Category: Medical (8) Tinea corporis: Code(s): B35.4 - Tinea corporis Category: Medical Plan - Monitor and follow-up on weight management; consider pharmacotherapy with [facility] or Zep[facility] subject to insurance coverage. - Encourage adherence to diet and exercise regimen, possibly refer to information writer if beneficial. - Address insomnia and anxiety with continuation of hydroxyzine; reassess efficacy periodically. - Schedule fasting blood work for renal function, liver enzymes, glucose levels, and vitamin status. - Manage gastroesophageal reflux through dietary adjustments and lifestyle changes. - Continue surveillance of elevated liver enzymes with periodic testing and imaging as indicated. - Discuss with patient the implications of marijuana use and consider cessation efforts. - Emphasize importance of water intake, sleep hygiene, and stress management. During the discussion, I emphasized the multifaceted approach to the patient's weight management, which includes lifestyle modification, dietary changes, and potential pharmacological intervention pending insurance approval. We reviewed the limitations of current insomnia management strategies and supported continued use of hydroxyzine while considering alternative therapies. I discussed the history and significance of elevated liver enzymes and microcytosis, noting previous negative workup results. We addressed risks associated with substance use, specifically marijuana, informing the patient of potential health risks and encouraging moderation. We reviewed the necessity for updated blood work to evaluate any unmet sleeping disorder, allergic reaction, or other factors that might be influencing his health concerns. We also acknowledged the importance of financial accessibility and assistance concerning coverage for newer medications or refer to specialists if needed. - Continue current hydroxyzine regimen for anxiety and insomnia. - Make an appointment for fasting lab work to reassess metabolic and liver function. - Maintain current exercise routine and consider further dietary modifications. - Avoid late-night meals that may exacerbate reflux symptoms; try to eat at least four hours before bed. - Encourage drinking adequate water and limit alcohol to weekends. - Be aware of the potential health risks of smoking marijuana and consider alternatives. - Stay up to date with vaccinations, inquire about tetanus booster availability. - If insurance denies coverage for weight management pharmacotherapy, contact the office for referral assistance. - Report any changes in symptoms or mood, especially concerning the use of new medications or interventions. Orders: Orders Free T4 (Free Thyroxine) Today J45.909 - Unspecified asthma, uncomplicated Thyroid Stimulating Hormone Today J45.909 - Unspecified asthma, uncomplicated Lipid Panel Today E78.00 - Pure hypercholesterolemia, unspecified, J45.909 - Unspecified asthma, uncomplicated Vitamin B12 and Folate Today J45.909 - Unspecified asthma, uncomplicated UA CC w/rflx Micro + Cult Today J45.909 - Unspecified asthma, uncomplicated, R30.0 - Dysuria Complete Blood Count Auto Diff Today J45.909 - Unspecified asthma, uncomplicated Comprehensive Met. Panel Today J45.909 - Unspecified asthma, uncomplicated Medications: New tirzepatide (Mounjaro) for 4 weeks 2.5 mg (0.5 mL) subcut QWEEK 2 mL 1RF E66.9 - Obesity, unspecified clotrimazole 1% 1 appl topical BID 4 weeks 30 mL 0RF B35.4 - Tinea corporis Refilled hydroxyzine HCl 50 mg PO BEDTIME 30 tabs 2RF B35.4 - Tinea corporis
[2024-05-27 10:59] VITALS: BP 132/80; PULSE 66; O2SAT 98; BMI 36.2
== END 2024-05-27 11:47 | disposition home or self-care (01) ==
PROVIDERS: PCP Internal Medicine; Visit Provider Internal Medicine
DX: Z00.00 Encounter for general adult medical examination without abnormal findings (principal); E66.9 Obesity, unspecified; J45.909 Unspecified asthma, uncomplicated; Z68.36 Body mass index [BMI] 36.0-36.9, adult; F41.1 Generalized anxiety disorder; R79.89 Other specified abnormal findings of blood chemistry; G47.00 Insomnia, unspecified; G62.9 Polyneuropathy, unspecified; B35.4 Tinea corporis

== ENCOUNTER → 2024-05-27 10:43 | Outpatient (BNVA) | payer BC, SELFPAY | PROVIDERS: PCP Internal Medicine; Visit Provider Internal Medicine | DX: Z00.00 Encounter for general adult medical examination without abnormal findings (principal); E66.9 Obesity, unspecified; Z68.36 Body mass index [BMI] 36.0-36.9, adult; J45.909 Unspecified asthma, uncomplicated; F41.1 Generalized anxiety disorder; R79.89 Other specified abnormal findings of blood chemistry; G47.00 Insomnia, unspecified; G62.9 Polyneuropathy, unspecified; B35.4 Tinea corporis | CPT/HCPCS: 96127 ==

== ENCOUNTER 2024-07-01 14:45 | Outpatient (AMB) | payer BC, SELFPAY ==
[2024-07-01 15:20] VITALS: BP 112/72; PULSE 89; TEMP 37.2; O2SAT 97; BMI 36.2
--- NOTE | 2024-07-01 15:20 | AM.OFFWIN_ITS ---
Intake Vital Signs 07/01/24 15:20 Height 5 ft 6 in Weight 224 lb BMI 36.2 BP 112/72 Blood Pressure Location Lt brachial Position Sitting Pulse 89 Pulse Source Pulse Oximeter Temp 98.9 F Temp Source Oral Pulse Oximetry (%) 97 Oxygen Delivery Method Room Air Intake Visit Reasons: EP Eye infection Intake Note: Pt presents to the office today for c/o right eye irritation and redness x3 days. Patient Tobacco Use Status: Never used Tobacco Allergies No Known Allergies Allergy (Verified 07/01/24 15:25) Medication List - Last Reconciled 07/01/24 by Nadya Johns MD blood pressure monitor (Blood Pressure Kit) As directed clotrimazole 1% 1 appl topical BID 4 weeks hydroxyzine HCl 50 mg PO BEDTIME semaglutide (weight loss) (Wegovy) 0.25 mg (0.5 mL) subcut QWEEK HPI EP Eye infection HPI Details History - The patient is a 33-year-old male pres enting with eye irritation primarily localized to the right eye. - The symptoms started on Sunday, when the patient felt as though there was an eyelash in the eye, leading to minor rubbing of the affected area. - By Sunday night, the symptom escalated with noticeable redness, - The patient's vision remains largely i ntact, with irritation being the primary complaint. Problem List - Conjunctivitis right eye Patient Instructions - Use prescribed eye drops as directed f or eye inflammation; improvement is often noticed within 24 to 48 hours. - Seek further examination with a primar care physician, Dr. Nagy, within two to three days, if symptoms persist or worsen. Review of Systems - General: No fever no chills - Neurological: no dizziness - Ear nose throat: No sore throat no hearing difficulty no ear pain Physical Exam General: No acute distress HEENT: Conjunctivitis in the right eye, irritation noted, no photophobia, NU, EOMI Neck: Supple Respiratory system: Able to talk in full sentences, OFFBEARER SEWER PIPE: Alert awake oriented x3 motor sensory intact Skin: Normal turgor PFSH Medical History Syphilis Obesity (BMI 30-39.9) Thrombocytopenia Generalized anxiety disorder Asthma Surgical History No pertinent past surgical history Family History Father Depression Mother Hypertension Depression Paternal Grandmother Breast cancer Brother Eye cancer Maternal Grandmother Myocardial infarction Maternal Grandfather Substance abuse Cirrhosis Other Brain tumor Mental health disorder Social History Housing: Apartment Alcohol intake: current Alcohol intake frequency: does not drink Comment: weekend beers at one time Patient Tobacco Use Status: Never used Tobacco Tobacco use type: Cigarette Years Smoked: marijuana e-Cigarette/Vaping Use: Never Used Second Hand Smoke Exposure: No Substance Use Type: Marijuana Current occupational status: employed Cognitive needs: No Hearing needs: No Vision needs: No Physical Exam Vital Signs: Last Vital Signs Temp 98.9 F 07/01/24 15:20 Pulse 89 07/01/24 15:20 BP 112/72 07/01/24 15:20 Pulse Ox 97 07/01/24 15:20 Oxygen Delivery Method Room Air 07/01/24 15:20 BMI result Body Mass Index 36.2 Assessment & Plan Assessment & Plan (1) Conjunctivitis, right eye: Code(s): H10.9 - Unspecified conjunctivitis Qualifiers: Conjunctivitis type: acute Acute conjunctivitis type: unspecified Qualified Code(s): H10.31 - Unspecified acute conjunctivitis, right eye Plan History - The patient is a 33-year-old male presenting with eye irritation primarily localized to the right eye. - The symptoms started on Sunday, when the patient felt as though there was an eyelash in the eye, leading to minor rubbing of the affected area. - By Sunday night, the symptom escalated with noticeable redness, - The patient's vision remains largely intact, with irritation being the primary complaint. Problem List - Conjunctivitis right eye Patient Instructions - Use prescribed eye drops as directed for eye inflammation; improvement is often noticed within 24 to 48 hours. - Seek further examination with a primary care physician, Dr. Nagy, within two to three days, if symptoms persist or worsen. Medications: New polymyxin B sulf-trimethoprim 10,000 unit- 1 mg/mL while awake; do not exceed 6 doses in 24 hours 1 drp ophthalmic (eye) QID 5 days 10 mL 0RF Coding Level of Care Code Est Pt Level 3 (07478) Diagnoses Acute conjunctivitis of right eye, unspecified acute conjunctivitis type H10.31 Conjunctivitis type: acute Acute conjunctivitis type: unspecified
== END 2024-07-01 16:03 | disposition home or self-care (01) ==
PROVIDERS: PCP Internal Medicine; Visit Provider Internal Medicine
DX: H10.31 Unspecified acute conjunctivitis, right eye (principal)

== ENCOUNTER 2024-07-10 08:06 | Outpatient (AMB) | payer BC, SELFPAY ==
--- NOTE | 2024-07-10 09:05 | MHC.OFFVISWM ---
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 *SEE COMMENTS* Allergies No Known Allergies Allergy (Verified 07/10/24 09:05) Medication List - Last Reconciled 07/10/24 by Rashad Bravo MD albuterol sulfate 90 mcg/actuation 2 puffs inhalation Q6H PRN blood pressure monitor (Blood Pressure Kit) As directed clotrimazole 1% 1 appl topical BID 4 weeks hydroxyzine HCl 50 mg PO BEDTIME ibuprofen (Advil) 200 mg PO Q6H PRN polymyxin B sulf-trimethoprim 10,000 unit- 1 mg/mL 1 drp ophthalmic (eye) QID 5 days HPI HPI 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 *SEE COMMENTS*: Details: Start time: 8.58am, End time: 9.58am ?I spent 55 minutes speaking with the patient on the phone plus an additional 5 minutes reviewing and updating records for a total of 60 minutes HPI Comments Details: [place] [facility] [place], protein shakes ([employer]), Exercise Wakes up: 6am, Sleeps: 11pm Breakfast: skips Lunch: 12-1pm (fish with rice, Sushi, beans with rice) Dinner: 6pm (soup, rice, pasta) Snacks: 10am (orange, trail mix nuts), 4pm (as in am), 8pm (peanuts) Exercise: Gym membership Beverages: Coffee: (1 cup/d with cream and sugar), tea: (1/wk), soda: none, juice: none, ETOH: 2/wk (3-4 beers x2/wk PFSH Medical History (Updated 07/10/24 @ 09:11 by Rashad Bravo MD) GERD (gastroesophageal reflux disease) Back pain Anxiety Hypertension Syphilis Obesity (BMI 30-39.9) Thrombocytopenia Generalized anxiety disorder Asthma Surgical History No pertinent past surgical history Family History Father Depression Mother Hypertension Depression Paternal Grandmother Breast cancer Brother Eye cancer Maternal Grandmother Myocardial infarction Maternal Grandfather Substance abuse Cirrhosis Other Brain tumor Mental health disorder Social History (Updated 07/02/24 @ 13:47 by Zamzam Mcgee [facility]) Housing: Apartment Alcohol intake: current Alcohol intake frequency: holidays/special occasions only Comment: weekend beers at one time Patient Tobacco Use Status: Never used Tobacco Tobacco use type: Cigarette Years Smoked: marijuana e-Cigarette/Vaping Use: Never Used Second Hand Smoke Exposure: No Substance Use Type: Marijuana Current occupational status: employed Cognitive needs: No Hearing needs: No Vision needs: No Telehealth Telehealth Telehealth Platform: Telephone Location of provider rendering services: practice address Location of patient: address on file Patient Identification confirmed using: Name, : Yes Telehealth method: voice only Patient verbally consented to treatment: Yes Patient verbally consented to billing insurance company: Yes Patient informed of any privacy concerns related to visit: Yes Minutes spent on Phone/Video with Pt.: 60 Assessment & Plan Assessment & Plan (1) Obesity (BMI 30-39.9): Code(s): E66.9 - Obesity, unspecified Category: Medical Plan: 1.? Plan for lap sleeve gastrectomy. If diaphragmatic or ventral hernias are present at time of surgery, these will be repaired laparoscopically as well. I emphasized the importance of close follow-up, adherence to instructions and good communication. The surgery does not replace the need to change your lifestlyle which is the cause of the obesity problem. The surgery provides the motivation to try again to change your lifestyle, it reduces the appetite and make the transition to a better lifestyle easier and doubles the amount of weight you would lose compared to doing the lifestyle change without the surgery. You will need to be on a liquid diet with protein shakes for 2 weeks before surgery to maximize weight loss and boost your nutritional status to recover better from surgery and also for the first two weeks after surgery to let the stomach heal before we introduce other foods. After the first 2 weeks we will introduce protein bars and soft foods like scrambled eggs, cottage cheese and yogurt and after the 6th week will introduce meat, fish and cooked vegetables in small amounts. Over time you should be able to eat everything in small amounts. Side effects like nausea, vomiting, heartburn or abdominal pain are not common in the practice unless you are not following in the practice. This operation requires lifetime commitment to following in our practice and communication with me. You will much less weight and experience side effects if you don?t communicate or not following in the practice. Complications are rare and in our practice is about 1/10 of the national average. However, you can develop bleeding that may require transfusion (hasn?t happened for year in the practice), you may from complications (we did not have any deaths in the practice) and infections. Infections are usually a result of breakdown in communication or not understanding or following directions correctly. They are difficult to treat, they can happen during the first 6 weeks, they may require to be in the hospital for weeks or even months, not being able to eat by mouth and you may have drains and surgeries to try and correct the issue. Other risks and complications include possible conversion to an open procedure, leaks, small bowel obstruction, blood clots, cardiac, or pulmonary complications, as chcf complications such as ulcers, insufficient weight loss and vitamin deficiencies. 2. You will receive a link of our software germán to generate an individualized nutritional and exercise plan specific for you. Please send me a screenshot of the plans you will generate Meal to include lean meat (beef, fish, pork, turkey, chicken), or citizen of [place] yogurt, or egg whites, or beans with a salad with olive oil and fruits (berries, pears, apples, kiwi). Avoid salt, breads, potatoes, rice, pasta, desserts. ?3. If you choose shakes, each shake would be drunk slowly, like coffee in a period of 2 hours. ?4. If you choose bars, cut each bar in 4 pieces and eat each piece in 30min ?to make each bar last 2 hours. ?5. I emphasized the importance of measuring accurately the food portion and measure it when serving the food in plate ?6. The meal portions include a specific number of forks of meat and salad. You always eat the meat portion but you can replace up to half of salad/vegetables portion with rice, potatoes or pasta, or a fruit ?if you like. The less you do it the better weight loss will be. ?7. One full-size fork is what it can be scooped on the fork without falling aside and not what can be bit with the fork. Use regular forks like those you find in a typical restaurant. ?8.? Please buy the body composition scale we discussed and send me weight measurements as soon as possible and then once a week. Always include your diet and exercise plan. 9. The best choice would be to purchase a stationary bike, elliptical or treadmill at home that can track calories. Let me know if you do so I can give you an exercise plan. ?10. Goal is to lose at least 1.5-2lbs per week ?11. Goal to lose 10% of your weight before surgery, which is about 24lbs. Ultimate weight goal: 200lbs before surgery 12. Please follow the diet plan exactly without any change. If you don't like something about the plan or you feel hungry you need to communicate with me so I can help you revise the plan. You should not change the plan yourself. 13. To be scheduled for EGD due to the history of GERD. The possibility of biopsies was discussed. Patient needs to avoid use of NSAIDs and aspirin for 1 week prior to EGD. You must be on liquids only the day before your endoscopy. Risks of perforation and bleeding was discussed with the patient. This will be an outpatient procedure with IV sedation. Orders: Orders Hemoglobin A1c Today E66.9 - Obesity, unspecified, I10 - Essential (primary) hypertension, K21.9 - Gastro-esophageal reflux disease without esophagitis, Z68.36 - Body mass index [BMI] 36.0-36.9, adult H Pylori Breath Test Today E66.9 - Obesity, unspecified, I10 - Essential (primary) hypertension, K21.9 - Gastro-esophageal reflux disease without esophagitis, Z68.36 - Body mass index [BMI] 36.0-36.9, adult Complete Blood Count Auto Diff Today E66.9 - Obesity, unspecified, I10 - Essential (primary) hypertension, K21.9 - Gastro-esophageal reflux disease without esophagitis, Z68.36 - Body mass index [BMI] 36.0-36.9, adult Vitamin B12 and Folate Today E66.9 - Obesity, unspecified, I10 - Essential (primary) hypertension, K21.9 - Gastro-esophageal reflux disease without esophagitis, Z68.36 - Body mass index [BMI] 36.0-36.9, adult Vitamin A Today E66.9 - Obesity, unspecified, I10 - Essential (primary) hypertension, K21.9 - Gastro-esophageal reflux disease without esophagitis, Z68.36 - Body mass index [BMI] 36.0-36.9, adult TSH reflex Free T4 Today E66.9 - Obesity, unspecified, I10 - Essential (primary) hypertension, K21.9 - Gastro-esophageal reflux disease without esophagitis, Z68.36 - Body mass index [BMI] 36.0-36.9, adult Vitamin D 25-OH Total Today E66.9 - Obesity, unspecified, I10 - Essential (primary) hypertension, K21.9 - Gastro-esophageal reflux disease without esophagitis, Z68.36 - Body mass index [BMI] 36.0-36.9, adult XR chest 2V Today E66.9 - Obesity, unspecified, I10 - Essential (primary) hypertension, K21.9 - Gastro-esophageal reflux disease without esophagitis, Z68.36 - Body mass index [BMI] 36.0-36.9, adult ECG 12 lead EKG Today E66.9 - Obesity, unspecified, I10 - Essential (primary) hypertension, K21.9 - Gastro-esophageal reflux disease without esophagitis, Z68.36 - Body mass index [BMI] 36.0-36.9, adult FL upper GI w air Today E66.9 - Obesity, unspecified, I10 - Essential (primary) hypertension, K21.9 - Gastro-esophageal reflux disease without esophagitis, Z68.36 - Body mass index [BMI] 36.0-36.9, adult Insulin Today E66.9 - Obesity, unspecified, I10 - Essential (primary) hypertension, K21.9 - Gastro-esophageal reflux disease without esophagitis, Z68.36 - Body mass index [BMI] 36.0-36.9, adult Lipid Panel Today E66.9 - Obesity, unspecified, I10 - Essential (primary) hypertension, K21.9 - Gastro-esophageal reflux disease without esophagitis, Z68.36 - Body mass index [BMI] 36.0-36.9, adult IRON PROFILE Today E66.9 - Obesity, unspecified, I10 - Essential (primary) hypertension, K21.9 - Gastro-esophageal reflux disease without esophagitis, Z68.36 - Body mass index [BMI] 36.0-36.9, adult Comprehensive Met. Panel Today E66.9 - Obesity, unspecified, I10 - Essential (primary) hypertension, K21.9 - Gastro-esophageal reflux disease without esophagitis, Z68.36 - Body mass index [BMI] 36.0-36.9, adult Zinc Today E66.9 - Obesity, unspecified, I10 - Essential (primary) hypertension, K21.9 - Gastro-esophageal reflux disease without esophagitis, Z68.36 - Body mass index [BMI] 36.0-36.9, adult C Reactive Protein Today E66.9 - Obesity, unspecified, I10 - Essential (primary) hypertension, K21.9 - Gastro-esophageal reflux disease without esophagitis, Z68.36 - Body mass index [BMI] 36.0-36.9, adult Vitamin B1 Today E66.9 - Obesity, unspecified, I10 - Essential (primary) hypertension, K21.9 - Gastro-esophageal reflux disease without esophagitis, Z68.36 - Body mass index [BMI] 36.0-36.9, adult Ferritin Today E66.9 - Obesity, unspecified, I10 - Essential (primary) hypertension, K21.9 - Gastro-esophageal reflux disease without esophagitis, Z68.36 - Body mass index [BMI] 36.0-36.9, adult US abdomen comp w elastography Today E66.9 - Obesity, unspecified, I10 - Essential (primary) hypertension, K21.9 - Gastro-esophageal reflux disease without esophagitis, Z68.36 - Body mass index [BMI] 36.0-36.9, adult Referrals Nutrition/Dietitian Referral E66.9 - Obesity, unspecified, I10 - Essential (primary) hypertension, K21.9 - Gastro-esophageal reflux disease without esophagitis, Z68.36 - Body mass index [BMI] 36.0-36.9, adult Behavioral Health Referral E66.9 - Obesity, unspecified, I10 - Essential (primary) hypertension, K21.9 - Gastro-esophageal reflux disease without esophagitis, Z68.36 - Body mass index [BMI] 36.0-36.9, adult
[2024-07-10 09:35] VITALS: BMI 36.2
== END 2024-07-10 09:59 | disposition home or self-care (01) ==
LOC: HO.HBS 08:06
PROVIDERS: PCP Internal Medicine; Visit Provider Surgery
DX: E66.812 Obesity, class 2 (principal); Z68.36 Body mass index [BMI] 36.0-36.9, adult
CPT/HCPCS: 99205

== ENCOUNTER → 2024-07-10 08:06 | Outpatient (BNVA) | payer BC, SELFPAY | PROVIDERS: PCP Internal Medicine; Visit Provider Surgery ==

== ENCOUNTER 2024-07-11 13:23 | Outpatient (REF) | payer BC, SELFPAY ==
--- NOTE | ~2024-07-11 | XR_ITS ---
EXAMINATION: XR CHEST 2 VIEWS HISTORY: Z68.36 - Body mass index [BMI] 36.0-36.9, adult COMPARISON: Comparison is made with the prior examination dated 05/04/2022. FINDINGS: PA and lateral views of the chest are submitted. The lungs are expanded and clear. There is no pleural effusion, pneumothorax, or pulmonary vascular congestion. The heart is normal in size. The bones are intact. XR/XR chest 2V IMPRESSION: No acute cardiopulmonary abnormality. Electronically signed by: Arnol Javed MD 07/11/2024 02:55 PM EDT
[2024-07-11 13:45] LABS: MANUAL DIFF FLAG NO
--- NOTE | 2024-07-11 13:53 | ECG_ITS ---
Test Reason : 268.36 Blood Pressure : */* mmHG Vent. Rate : 69 BPM Atrial Rate : 69 BPM P-R Int : 172 ms QRS Dur : 96 ms QT Int : 378 ms P-R-T Axes : 15 52 23 degrees QTcB Int : 405 ms Normal sinus rhythm Incomplete right bundle branch block Borderline ECG When compared with ECG of 04-May-2022 14:50, No significant change was found Referred By: Rashad Bravo Electronically Signed By: DARIUSZ ANGUIANO MD
[2024-07-11 14:27] LABS: Appearance Urine Clear; Color Urine Yellow; Glucose Urine UA Negative (Negative); Leukocyte Esterase Urine Negative (Negative); Nitrite Urine Negative (Negative); PH 5.5 (5.0-9.0); Urine Blood Negative (Negative); Urine Ketones Negative (Negative); Urine Protein Negative (Neg-Trace)
[2024-07-11 14:43] LABS: Basophils Absolute Auto 0.1 X10*3/uL (0.0-0.2); Eosinophils Absolute Auto 0.9 X10*3/uL (0.0-0.4); Eosinophils Percent Auto 13.2 % (0-4); Hematocrit 47.8 % (42.0-52.0); Hemoglobin 15.7 g/dl (14.0-18.0); Imm Gran Abs Auto 0.02 X10*3/uL (0.00-0.03); Imm Gran Pct Auto 0.3 % (0.0-0.4); Lymphocytes Absolute Auto 2.1 X10*3/uL (1.2-4.9); Lymphocytes Percent Auto 30.4 % (20-40); Mean Corpuscular HGB Conc 32.8 g/dl (31.0-36.0); Mean Corpuscular Hemoglobin 25.7 pg (27.0-33.0); Mean Corpuscular Volume 78.1 fL (80.0-98.0); Mean Platelet Volume 10.6 fL (9.4-12.4); Monocytes Absolute Auto 0.5 X10*3/uL (0.1-1.2); Monocytes Percent Auto 7.7 % (2-11); Neutrophils Absolute Auto 3.3 x10*3/uL (2.0-8.3); Neutrophils Percent Auto 47.4 % (45-73); Platelet Count 183 X10*3/uL (160-400); Red Blood Count 6.12 X10*6/uL (4.60-5.80); Red Cell Distribution Width 14.4 % (11.0-16.0)
[2024-07-11 14:52] LABS: Alanine Aminotransferase 28 U/L (0-40); Albumin Level 4.4 g/dL (3.5-5.0); Alkaline Phosphatase 67 U/L (39-117); Anion Gap 8 (12-20); Aspartate Amino Transferase 28 U/L (5-37); Bilirubin Total 0.4 mg/dL (0.0-1.0); Blood Urea Nitrogen 8 mg/dL (9-16); Calcium 9.5 mg/dL (8.4-10.2); Carbon Dioxide 27 mmol/L (22-29); Chloride 108 mmol/L (96-108); Cholesterol 190 mg/dL (<200); Estimated Glomerular Filt Rate > 60; Glucose Random 95 mg/dL (60-115); HDL Cholesterol 40 mg/dL (>40); LDL Cholesterol Calculated 129 mg/dL (<100); Potassium 4.4 mmol/L (3.3-5.1); Sodium 139 mmol/L (135-145); Total Protein 7.3 g/dL (6.5-8.0); Triglycerides 109 mg/dL (<150)
[2024-07-11 14:57] LABS: C Reactive Protein 0.21 mg/dL (< or = 0.50); Iron 74 mcg/dL (45-160); Percent Iron Saturation 26 % (15-50); Total Iron Binding Capacity 287 mcg/dL (228-428); Unsaturated Iron Binding 213 ug/dL
[2024-07-11 15:01] LABS: Estimated Average Glucose 108 mg/dL; Hemoglobin A1c % 5.4 % (<6.0)
[2024-07-11 15:03] LABS: Free T4 (Free Thyroxine) 1.03 ng/dL (0.71-1.85); Thyroid Stimulating Hormone 0.57 uIU/mL (0.32-4.0)
[2024-07-11 15:08] LABS: Ferritin 89 ng/mL (20-250); TSH reflex Free T4 0.57 uIU/mL (0.32-4.0); Vitamin D 25-OH Total 9.6 ng/mL (>30)
[2024-07-11 15:15] LABS: Folate 12.1 ng/mL (> or = 4.0); Folate 12.7 ng/mL (> or = 4.0); Vitamin B12 310 pg/mL (200-900); Vitamin B12 391 pg/mL (200-900)
[2024-07-11 15:19] LABS: Insulin 12 uU/mL (2-29)
[2024-07-14 18:58] LABS: Vitamin A 54 mcg/dL (38-98)
[2024-07-15 05:48] LABS: Zinc 69 mcg/dL (60-130)
[2024-07-20 12:43] LABS: Vitamin B1 8 nmol/L (8-30)
== END 2024-07-11 13:24 | disposition home or self-care (01) ==
LOC: HO.XRAY 13:23
PROVIDERS: Absent Provider Surgery; PCP Internal Medicine; Visit Provider Internal Medicine
DX: J45.909 Unspecified asthma, uncomplicated (principal); R30.0 Dysuria; Z68.36 Body mass index [BMI] 36.0-36.9, adult; E66.9 Obesity, unspecified; I10 Essential (primary) hypertension; K21.9 Gastro-esophageal reflux disease without esophagitis; Z13.1 Encounter for screening for diabetes mellitus
CPT/HCPCS: 36415; 71046; 80053; 80061; 81003; 82306; 82607; 82728; 82746; 83036; 83525; 83540; 84425; 84439; 84443; 84590; 84630; 85025; 86140; 93005

== ENCOUNTER → 2024-07-11 13:53 | Outpatient (BNV) | payer BC, SELFPAY | PROVIDERS: Absent Provider Surgery; PCP Internal Medicine; Visit Provider Internal Medicine Cardiovascular Disease | DX: I45.10 Unspecified right bundle-branch block (principal) | CPT/HCPCS: 93010 ==

== ENCOUNTER → 2024-07-11 14:02 | Outpatient (BNV) | payer BC, SELFPAY | PROVIDERS: Absent Provider Surgery; PCP Internal Medicine; Visit Provider Radiology Diagnostic Radiology | DX: Z68.36 Body mass index [BMI] 36.0-36.9, adult (principal) | CPT/HCPCS: 71046 ==

== ENCOUNTER 2024-07-14 09:54 | Outpatient (AMB) | payer BC, SELFPAY ==
[2024-07-14 09:57] VITALS: BP 132/84; PULSE 84; TEMP 36.5; O2SAT 97; BMI 36.7
--- NOTE | 2024-07-14 09:57 | A.OFFPC_ITS ---
Vital Signs 07/14/24 09:57 Height 5 ft 6 in Weight 227 lb 2 oz BMI 36.7 BP 132/84 Blood Pressure Location Lt brachial Position Sitting Pulse 84 Pulse Source Pulse Oximeter Temp 97.7 F Temp Source Temporal Artery Scan Pulse Oximetry (%) 97 Oxygen Delivery Method Room Air Intake Visit Reasons: discuss weight management/ anxiety med Allergies No Known Allergies Allergy (Verified 07/14/24 09:57) Medication List - Last Reconciled 07/14/24 by Kavya Nagy MD albuterol sulfate 90 mcg/actuation 2 puffs inhalation Q6H PRN blood pressure monitor (Blood Pressure Kit) As directed clotrimazole 1% 1 appl topical BID 4 weeks hydroxyzine HCl 50 mg PO BEDTIME ibuprofen (Advil) 200 mg PO Q6H PRN Tobacco use date assessed: 07/14/24 Dental Screening Dental Screen Date: 05/27/24 Did you have a dental visit in the last 12 months?: Yes Did you have a dental problem in the last 6 months where you did not have access to dental care?: No Was dental information given to patient?: Patient has dentist [facility] Medical History GERD (gastroesophageal reflux disease) Back pain Anxiety Hypertension Syphilis Obesity (BMI 30-39.9) Thrombocytopenia Generalized anxiety disorder Asthma Surgical History No pertinent past surgical history Family History Father Depression Mother Hypertension Depression Paternal Grandmother Breast cancer Brother Eye cancer Maternal Grandmother Myocardial infarction Maternal Grandfather Substance abuse Cirrhosis Other Brain tumor Mental health disorder Social History Housing: Apartment Alcohol intake: current Alcohol intake frequency: holidays/special occasions only Comment: weekend beers at one time Patient Tobacco Use Status: Never used Tobacco Tobacco use type: Cigarette Years Smoked: marijuana e-Cigarette/Vaping Use: Never Used Second Hand Smoke Exposure: No Substance Use Type: Marijuana Current occupational status: employed Cognitive needs: No Hearing needs: No Vision needs: No Questionnaire PHQ-9 Over the last 2 weeks, how often have you been bothered by any of the following problems? 1. Little interest or pleasure in doing things: several days 2. Feeling down, depressed, or hopeless: several days 3. Trouble falling or staying asleep, or sleeping too much: several days 4. Feeling tired or having little energy: several days 5. Poor appetite or overeating: not at all 6. Feeling bad about yourself - or that you are a failure or have let yourself or your family down: several days 7. Trouble concentrating on things, such as reading the newspaper or watching television: several days 8. Moving or speaking so slowly that other people could have noticed. Or the opposite - being so fidgety or restless that you have been moving around a lot more than usual: not at all 9. Thoughts that you would be better off or of hurting yourself in some way: not at all Total score: 6 Depression Screening Interpretation: Positive Depression Screening Done: Yes 24312 - PHQ-9 Billing: Yes Source: Developed by Drs. Arnol Petersen, Yu Brian, Paulo Blake and colleagues, with an educational sharmila from [employer]. Thrive Questionnaire Date Thrive assessed: 05/27/24 I am a: Patient What is your living situation today?: I have a steady place to live Within the past 12 months, did the food you bought not last and you didn't have the money to get more?: Sometimes True Within the past 12 months, did you worry whether your food would run out before you got money to buy more?: Sometimes True Do you have trouble paying for medicines?: Yes Do you have trouble getting transportation to medical appointments?: No Do you have trouble paying your heating and electricity bill?: Yes Do you have trouble taking care of your child, family member or friend?: No Do you have trouble with day-to-day activities such as bathing, preparing meals, shopping, managing finances, etc.?: No Are you currently unemployed and looking for a job?: No Are you interested in more education?: Yes Currently or been in a relationship where the following occur: No concerns reported THRIVE Score: 3 AUDIT C Alcohol Use Questionnaire (AUDIT-C) 1. How often do you have a drink containing alcohol?: Monthly or less 2. How many drinks containing alcohol do you have on a typical day when you are drinking?: 3 or 4 3. How often do you have six or more drinks on one occasion?: Less than monthly Total Score: 3 CAMERON-7 AMB Questionnaire CAMERON-7 Date CAMERON - 7 assessed: 05/27/24 Feeling nervous, anxious, or on edge: 1 = Several days Not being able to stop or control worryin = Several days Worrying too much about different things: 1 = Several days Trouble relaxin = Several days Being so restless that it is hard to sit still: 1 = Several days Becoming easily annoyed or irritable: 0 = Not at all Feeling afraid as if something awful might happen: 1 = Several days Total CAMERON-7 score (0-4 normal; 5-9 mild; 10-14 moderate; 15-21 severe): 6 Source: Developed by Drs. Arnol Petersen, Yu Brian, Paulo Blake and colleagues, with an educational sharmila from [employer]. Physical exam (Primary Care) Vital Signs: Last Vital Signs Temp 97.7 F 07/14/24 09:57 Pulse 84 07/14/24 09:57 BP 132/84 07/14/24 09:57 Pulse Ox 97 07/14/24 09:57 Oxygen Delivery Method Room Air 07/14/24 09:57 BMI result Body Mass Index 36.7 Tobacco/Smoking Status: Tobacco use Status Tobacco use date assessed 07/14/24 07/14/24 10:02 Patient Tobacco Use Status Never used Tobacco 07/14/24 10:02 Tobacco use type Cigarette 07/14/24 10:02 e-Cigarette/Vaping Use Never Used 07/14/24 10:02 PHQ-9: PHQ-9 Score PHQ-9: Total score 6 07/14/24 10:28 Depression Screening Interpretation: Positive Thrive Assessment: Date of Thrive Assessment Date Thrive assessed 05/27/24 07/14/24 10:02 Currently or been in a relationship where the following occur: No concerns reported Const General: alert; No acute distress Eyes Conjunctivae: conjunctivae normal Resp Auscultation: clear to auscultation bilaterally Cardio Rate: regular rate Rhythm: regular rhythm GI Inspection: Yes normal to inspection Extrem General: Yes normal to inspection and No edema Coding Level of Care Code Est Pt Level 4 (17622) Diagnoses GERD (gastroesophageal reflux disease) K21.9 Hypertension I10 Asthma J45.909 Generalized anxiety disorder F41.1 Obesity (BMI 30-39.9) E66.9 Additional Codes PHQ-9 - 01940 - PHQ-9 Billing: Yes ([id number]) Assessment & Plan Assessment & Plan (1) GERD (gastroesophageal reflux disease): Code(s): K21.9 - Gastro-esophageal reflux disease without esophagitis Category: Medical Plan: Avoid the foods that causes that usually spicy foods, tomato products, juices, coffee, soda and foods that your sensitive to. After eating do not lie down, allow 3-4 hours before in lie down. And keep the head of bed above 30 degrees to avoid the acid from going up. (2) Hypertension: Code(s): I10 - Essential (primary) hypertension Category: Medical Plan: Continue with blood pressure medication. Decrease salt intake and exercise this has been controlled (3) Asthma: Code(s): J45.909 - Unspecified asthma, uncomplicated Category: Medical Plan: on albuterol inhaler (4) Generalized anxiety disorder: Code(s): F41.1 - Generalized anxiety disorder Category: Medical Plan: stable (5) Obesity (BMI 30-39.9): Code(s): E66.9 - Obesity, unspecified Category: Medical Plan: diet and exercise. Patient follows up with weight management Plan History of Present Illness The patient is a 33-year-old male presenting for follow-up regarding his well- documented chronic conditions including obesity, asthma, generalized anxiety disorder, GERD, and vitamin D deficiency. He has proactively managed his conditions, engaging in weight management programs, yet continues to struggle with elevated LDL cholesterol. The patient's microcytic red blood cell condition has not progressed to anemia but remains under observation due to its association with iron deficiency. Patient has experienced panic attacks, especially aggravated during stressful situations at work, and hydroxyzine has provided limited relief. The patient's asthma remains stable, not requiring frequent use of albuterol; however, GERD continues to be controlled with non-pharmacological methods. Continuous low vitamin D levels despite lifestyle efforts were emphasized. Cholesterol patterns were conversed, with sequential rises recorded over a span of years, highlighting a need for dietary vigilance. Current therapeutic suggestions and management strategies were initiated for addressing these health concerns effectively. Health Maintenance - Recommendation for daily oral vitamin D supplementation (2000 units once daily) due to low serum levels. - Encourage lifestyle modifications to manage elevated LDL cholesterol. - Consider enhanced dietary strategies for weight management and overall cardiovascular health. - Continuation of mental health support through employer-provided counseling. - Potential introduction of sertraline for anxiety management. - Evaluation of cholesterol levels and kidney function maintained as per recent labs. Social History - Utilizes hydroxyzine for anxiety management and discussion of daytime panic attacks at work. - Engages with employer-provided counseling services. - Aware and actively involved in weight management but faces insurance-related barriers for obesity medication coverage. - Regular engagement in exercise and attempts moderation in diet to manage cholesterol levels. Review of Systems - Psychiatric: Reports anxiety and daytime panic attacks inadequately managed during high-stress situations. - Respiratory: Denies current usage of albuterol inhaler since asthma symptoms have been stable. Physical Exam Results - Labs: Normal blood counts; microcytic red blood cell presence observed. No anemia. Normal sodium and electrolyte levels, and good renal function. Normal blood sugar, insulin, and liver function. LDL cholesterol recorded at 129. Vitamin D level critically low at 9.6. Plan Asthma management remains stable and the use of albuterol continues as required. Anxiety management shifts towards a daily medication regimen with sertraline, focusing on consistent anxiolytic effects. Vitamin D supplementation is crucial given deficient levels, emphasizing adherence to oral intake and sun exposure. Hyperlipidemia control necessitates dietary adjustments and consistent exercise engagement, while the pursuit of weight management interventions through insurance support is advised. Blood diagnostic tests will continue to be ileana odically reviewed to track metabolic health indicators. Patient was informed and verbally consented to the use of an ambient scribe for clinic note documentation during this visit. Discussion Notes I discussed with the patient the benefits of maintaining current asthma management practices given their effectiveness. Conversion to daily sertraline for anxiety was explained, aiming to bridge the limited relief now observed with prn hydroxyzine. The patient was informed of the necessity to supplement low vitamin D levels and engage sunlight exposure for optimal benefits. I suggested recommendations to improve LDL cholesterol management via lifestyle changes, highlighting potential genetic factors. Conversations included weight management strategies, supporting the exploration of alternative options within the constraints of insurance approvals. The importance of consistent monitoring of blood diagnostics to evaluate risk and metabolic status was reinforced. Patient Instructions - Continue as-needed use of albuterol inhaler. - Begin daily sertraline as prescribed for anxiety. - Take vitamin D supplements daily; aim for regular sun exposure. - Adopt dietary changes lowering cholesterol and continue regular exercise. - Follow up on weight management options, including insurance and medication inquiry. - Seek out employer counseling services as needed for mental health support. - Follow dietary guidance for cholesterol management. - Attend follow-up as scheduled. Medications: New sertraline 25 mg PO DAILY 30 tabs 3RF F41.1 - Generalized anxiety disorder Refilled hydroxyzine HCl 50 mg PO BEDTIME 30 tabs 2RF B35.4 - Tinea corporis
== END 2024-07-14 10:44 | disposition home or self-care (01) ==
LOC: HO.HMCH 09:55
PROVIDERS: PCP Internal Medicine; Visit Provider Internal Medicine
DX: K21.9 Gastro-esophageal reflux disease without esophagitis (principal); I10 Essential (primary) hypertension; E66.9 Obesity, unspecified; Z68.36 Body mass index [BMI] 36.0-36.9, adult; J45.909 Unspecified asthma, uncomplicated; F41.1 Generalized anxiety disorder

== ENCOUNTER → 2024-07-14 09:54 | Outpatient (BNVA) | payer BC, SELFPAY | PROVIDERS: PCP Internal Medicine; Visit Provider Internal Medicine | DX: K21.9 Gastro-esophageal reflux disease without esophagitis (principal); I10 Essential (primary) hypertension; J45.909 Unspecified asthma, uncomplicated; F41.1 Generalized anxiety disorder; E66.9 Obesity, unspecified; Z68.36 Body mass index [BMI] 36.0-36.9, adult | CPT/HCPCS: 96127 ==

== ENCOUNTER → 2024-08-11 08:15 | Outpatient (AMB) | payer BC, SELFPAY ==
--- NOTE | 2024-08-11 08:05 | MHC.WMTHER ---
Intake Intake Visit Reasons: VIDEO BH Intake Allergies No Known Allergies Allergy (Verified 07/14/24 09:57) [facility] Medical History GERD (gastroesophageal reflux disease) Back pain Anxiety Hypertension Syphilis Obesity (BMI 30-39.9) Thrombocytopenia Generalized anxiety disorder Asthma Surgical History No pertinent past surgical history Family History Father Depression Mother Hypertension Depression Paternal Grandmother Breast cancer Brother Eye cancer Maternal Grandmother Myocardial infarction Maternal Grandfather Substance abuse Cirrhosis Other Brain tumor Mental health disorder Social History Housing: Apartment Alcohol intake: current Alcohol intake frequency: holidays/special occasions only Comment: weekend beers at one time Patient Tobacco Use Status: Never used Tobacco Tobacco use type: Cigarette Years Smoked: marijuana e-Cigarette/Vaping Use: Never Used Second Hand Smoke Exposure: No Substance Use Type: Marijuana Current occupational status: employed Cognitive needs: No Hearing needs: No Vision needs: No Behavioral Health Assessment Weight Management Therapy Therapy Notes Details The patient is a 33-year-old male presenting for an initial visit to begin behavioral health assessment as part of the surgical weight loss program. He was referred to the program by his primary care provider, who had attempted to initiate pharmacologic weight loss treatment. However, the insurance plan denied coverage, citing the need for additional steps prior to approval. Presenting Concerns Referral Source WMP-Provider. Reason for referral Completion of behavioral health assessment as part of process for weight-loss surgery. Precipitating Event Obesity. Living Situation Current Living Situation Own At risk of losing current housing? No Satisfied with current living situation? Yes Comments PT lives alone with his 2 dogs. Social History Family history and relationship PT is single. Has no children, but he does foster care. His parents are alive but . He has 6 siblings on his dad's side and 2 on his mom's. PT reports good family dynamics. His family lives in town near. 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 Developmental history and status None reported. Currently reported anxiety. Social support Father, a close friend. Community support Co-workers. Hoahaoism/Spirituality None. Cultural/Ethnic information Greek/. Born and raised in [place], [place]. Legal Involvement and History Current or historical involvement with the legal system? None. Education Highest grade completed Some college. Preferred learning style Learn by doing Currently enrolled in educational program? Yes Interested in further educational program? Yes Educational Interests/Skills PT is finishing his Bachelors in human services and psychology. 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 ) Wants help to find employment? No Meaningful activities Dance, outdoors activities, play dominos. Financial Situation Describe current financial situation Comfortable and Occasional struggle Financial assistance? None Service Service? No Mental Health and Addiction Treatment Current/Past substance abuse? No Comments Alcohol: 4 beers 2-3 times at month. Cigarettes/Tobacco: None Cannabis/Edibles: smoke cannabis daily in the evening for anxiety, Current/Past addictive behavior concerns? No Psychiatric history PT reports his PCP has diagnosed him with anxiety and depression, and he's getting prescribed Hydroxyzine 50mg 1 at bedtime and sertraline 25mg 1 in the morning. He has had panic attacks during stressful situations PT reports his Sx of anxiety started a few years ago, characterized by constant worries, overthinking, and tension. He has been in therapy before a few years ago. PT denies ever been in crisis or hospitalized for mental health. Denies any history or current safety concerns around self-harm or other harm. Medical and Physical Health Summary Additional Medical History not covered in history None additional. Sexual History concerns None reported. Physical exam in the last year? Yes Pain Screening Current pain? No Pain in the last few months? Yes (Lower back pain. ) Medications Is the patient compliant with medications? No (uses them as needed. ) Does the patient have Welsh Guardian in place? Not applicable Does the patient use complimentary health approaches? No Trauma/Abuse History History of trauma? 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 ) Questionnaires PHQ-9 Over the last 2 weeks, how often have you been bothered by any of the following problems? 1. Little interest or pleasure in doing things: more than half the days 2. Feeling down, depressed, or hopeless: more than half the days 3. Trouble falling or staying asleep, or sleeping too much: more than half the days 4. Feeling tired or having little energy: several days 5. Poor appetite or overeating: more than half the days 6. Feeling bad about yourself - or that you are a failure or have let yourself or your family down: more than half the days 7. Trouble concentrating on things, such as reading the newspaper or watching television: several days 8. Moving or speaking so slowly that other people could have noticed. Or the opposite - being so fidgety or restless that you have been moving around a lot more than usual: not at all 9. Thoughts that you would be better off or of hurting yourself in some way: not at all Total score: 12 Depression Screening Interpretation: Positive (Scores from new PT pack. A New one will be administered at next visit. ) Depression Screening Follow-up: Existing condition and In treatment Depression Screening Done: Yes Source: Developed by Drs. Arnol Petersen, Yu Brian, Paulo Blake and colleagues, with an educational sharmila from [employer] Binge Eating Scale Group 1 A. I don't feel self-conscious about my wt. or body size when I'm with others. B. I feel concerned about how I look to others, but it normally does not make me fell disappointed with myself C. I do get self-conscious about my appearance and wt. which makes me feel disappointed in myself. D. I feel very self-conscious about my wt. and frequently I feel intense shame and disgust for myself. I try to avoid social contacts because of my self-consciousness. Response Group 1: D Group 2 A. I don't have any difficulty eating slowly in the proper manner. B. Although I seem to gobble down foods, I don't end up feeling stuffed because of eating to much. C. At times, I tend to eat quickly and then, I feel uncomfortably full afterwards. D. I have the habit of bolting down my food, without really chewing it. When this happens I usually feel uncomfortably stuffed because I've eaten to much. Response Group 2: A Group 3 A. I feel capable to control my eating urges when I want to. B. I feel like I have failed to control my eating more than the average person. C. I feel utterly helpless when it comes to feeling in control of my eating urges. D. Because I feel so helpless about controlling my eating I have become very desperate about trying to get control. Response Group 3: A Group 4 A. I don't have the habit of eating when I'm bored. B. I sometimes eat when I'm bored, but often I'm able to get busy and get my mind off food. C. I have a regular habit of eating when I'm bored, but occasionally, I can use some other activity to get my mind off eating. D. I have a strong habit of eating when I'm bored. Nothing seems to help me breath the habit. Response Group 4: A Group 5 A. I'm usually physically hungry when I eat something. B. Occasionally, I eat something on impulse even though I really am not hungry. C. I have the regular habit of eating foods, that I might not really enjoy, to satisfy a hungry feeling even though physically, I don't need the food. D. Although I'm not physically hungry, I get a hungry feeling in my mouth that only seems to be satisfied when I eat a food, like sandwich, that fills my mouth. Sometimes, when I eat the food to satisfy my mouth hunger, I then spit the food out so I won't gain weight. Response Group 5: A Group 6 A. I don't feel any guilt or self-hate after I overeat. B. After I overeat, occasionally I feel guilt or self-hate. C. Almost all the time I experience strong guilt or self-hate after I overeat. Response Group 6: B Group 7 A. I don't lose total control of my eating when dieting even after periods when I overeat. B. Sometimes when I eat a forbidden food on a diet, I feel like I blew it and eat even more. C. Frequently, I have the habit of saying to myself, I've blown it now, why not go all the way, when I overeat on a diet. When that happens I eat more. D. I have a regular habit of starting a strict diets for myself but I break the diets by going on an eating binge. My life seems to be either a feast or famine. Response Group 7: A Group 8 A. I rarely eat so much food that I feel uncomfortably stuffed afterwards. B. Usually about once a month, I each such a quantity of food, I end up feeling very stuffed. C. I have regular periods during the month when I eat large amounts of food, either at mealtime or at snacks. D. I eat so much food that I regularly feel quite uncomfortable after eating and sometimes a bit nauseous. Response Group 8: A Group 9 A. My level of calorie intake does not go up very high or go down very low on a regular basis. B. Sometimes after I overeat, I will try to reduce my caloric intake to almost nothing to compensate for the excess calories I've eaten. C. I have a regular habit of overeating during the night. It seems that my routine is not to be hungry in the morning but overeat in the evening. D. In my adult years, I have had week-long periods where I practically starve myself. This follows periods when I overeat. It seems I live a life of either feast or famine. Response Group 9: B Group 10 A. I usually am able to stop eating when I want to. I know when enough is enough. B. Every so often, I experience a compulsion to eat which I can't seem to control. C. Frequently, I experience strong urges to eat which I seem unable to control, but at other times I can control my eating urges. D. I feel incapable of controlling urges to eat. I have a fear of not being able to stop eating voluntarily. Response Group 10: A Group 11 A. I don't have any problem stopping eating when I feel full. B. I usually can stop eating when I feel full but occasionally overeat leaving me feeling uncomfortably stuffed. C. I have a problem stopping eating once I start and usually I feel uncomfortably stuffed after I eat a meal. D. Because I have a problem not being able to stop eating when I want, I sometimes have to induce vomiting to relieve my stuffed feeling. Response Group 11: A Group 12 A. I seem to eat just as much when I'm with others, Family social gatherings as when I'm by myself. B. Sometimes, when I'm with other persons, I don't eat as much as I want to eat because I'm self-conscious about my eating. C. Frequently, I eat only a small amount of food when others are present, because I'm very embarrassed about my eating. D. I feel so ashamed about overeating that I pick times to overeat when I know no one will see me. I feel like a closet eater. Response Group 12: A Group 13 A. I eat three meals a day with only an occasional between meal snack. B. I eat 3 meals a day, but I also normally snack between meals. C. When I am snacking heavily, I get in the habit of skipping regular meals. D. There are regular periods when I seem to be continually eating, with no planned meals. Response Group 13: C Group 14 A. I don't think much about trying to control unwanted eating urges. B. At least some of the time, I feel my thoughts are pre-occupied with trying to control my eating urges. C. I feel that frequently I spend much time thinking about how much I ate or about trying not to eat anymore. D. It seems to me that most of my waking hours are pre-occupied by thoughts about eating or not eating. I feel like I'm constantly struggling not to eat. Response Group 14: A Group 15 A. I don't think about food a great deal. B. I have strong craving for food but they last only for brief periods of time. C. I have days when I can't seem to think about anything else but food. D. Most of my days seem to be pre-occupied with thoughts about food. I feel like I live to eat. Response Group 15: A Group 16 A. I usually know whether or not I'm physically hungry. I take the right portion of food to satisfy me. B. Occasionally, I feel uncertain about knowing whether or not I'm physically hungry. A these times it's hard to know how much food I should take to satisfy me. C. Even though I might know how many calories I should eat, I don't have any idea what is a normal amount of food for me. Response Group 16: A Binge Eating Score: 7 Score less than 17 Minimal Risk Score between 18-26 Moderate Risk Score between 27-46 High Risk Assessment & Plan Assessment & Plan (1) Anxiety: Code(s): F41.9 - Anxiety disorder, unspecified (2) Pre-bariatric surgery psychological evaluation: Code(s): Z71.89 - Other specified counseling Plan PT not cleared today, he will return in 2 weeks to continue assessment. Next germán: 08/25/2024 at 2:30pm. Telehealth Telehealth Telehealth Telehealth Platform: [employer] Location of provider rendering services: other Location of patient: address on file Patient Identification confirmed using: Name, : Yes Telehealth method: voice only Patient verbally consented to treatment: Yes Patient verbally consented to billing insurance company: Yes Patient informed of any privacy concerns related to visit: Yes Minutes spent on Phone/Video with Pt.: 55 Coding Level of Care Code New Pt Tele Psytx >53 mins ([id number]) Patient Type New Diagnoses Anxiety F41.9 Pre-bariatric surgery psychological evaluation Z71.89 Time Spent (min) 55
== END ==
LOC: HO.HBST 08:15
PROVIDERS: PCP Internal Medicine; Visit Provider Counselor Mental Health
DX: F41.9 Anxiety disorder, unspecified (principal); Z71.89 Other specified counseling
CPT/HCPCS: 90837

== ENCOUNTER → 2024-08-11 08:15 | Outpatient (BNVA) | payer BC, SELFPAY | PROVIDERS: PCP Internal Medicine; Visit Provider Counselor Mental Health ==

== ENCOUNTER 2024-08-18 09:31 | Day surgery (SDC) | payer BC, SELFPAY ==
[2024-08-18 09:47] VITALS: BMI 36.8
--- NOTE | 2024-08-18 10:02 | HO.ANESPROP2 ---
[facility] Active Problems Active Problems: All Active Problems Vitamin B12 deficiency (Acute) Vitamin D deficiency (Acute) GERD (gastroesophageal reflux disease) (Acute) Back pain (Acute) Anxiety (Acute) Hypertension (Acute) BMI 36.0-36.9,adult (Acute) Conjunctivitis, right eye (Acute) Tinea corporis (Acute) Peripheral neuropathy (Acute) Insomnia (Acute) Ganglion cyst of both ankles (Acute) Blood pressure elevated without history of HTN (Acute) Syphilis (Acute) Sexually transmitted disease exposure (Acute) Inguinal lymphadenopathy (Acute) Nasal congestion (Acute) Tinea cruris (Acute) Liver function abnormality (Acute) LFT elevation (Acute) Left upper quadrant abdominal pain (Acute) Left-sided chest pain (Acute) Contusion, chest wall (Acute) Annual physical exam (Acute) Obesity (BMI 30-39.9) (Acute) Generalized anxiety disorder (Acute) Asthma (Acute) Past Medical History Medical History GERD (gastroesophageal reflux disease) Back pain Anxiety Hypertension Syphilis Obesity (BMI 30-39.9) Thrombocytopenia Generalized anxiety disorder Asthma Family History Family History Father Depression Mother Hypertension Depression Paternal Grandmother Breast cancer Brother Eye cancer Maternal Grandmother Myocardial infarction Maternal Grandfather Substance abuse Cirrhosis Other Brain tumor Mental health disorder Surgical History Surgical History No pertinent past surgical history History of Problems with Anesthesia: No Social History Social History Housing: Apartment Alcohol intake: current Alcohol intake frequency: holidays/special occasions only Comment: weekend beers at one time Patient Tobacco Use Status: Never used Tobacco Tobacco use type: Cigarette Years Smoked: marijuana e-Cigarette/Vaping Use: Never Used Second Hand Smoke Exposure: No Substance Use Type: Marijuana Advance Directives: No Advance Directives Information Provided: Yes Current occupational status: employed Cognitive needs: No Hearing needs: No Vision needs: No Meds Allergies Allergy/AdvReac Type Severity Reaction Status Date / Time No Known Allergies Allergy Verified 07/14/24 09:57 Active Medications: Current Medications Lactated Ringer's (Lr) 1,000 mls @ 80 mls/hr IVCONT .[id number] CAROLYN Lactated Ringer's (Lr) 1,000 mls @ 80 mls/hr IVCONT .[id number] CAROLYN Home Medications ?Medication ?Instructions ?Recorded ?Confirmed ?Last Taken ?Type albuterol sulfate 90 mcg/actuation 2 puff inhalation Q6H PRN 07/10/24 07/14/24 Unknown History aerosol inhaler ibuprofen 200 mg tablet (Advil) 200 mg PO Q6H PRN 07/10/24 07/14/24 Unknown History Exam Height,Weight and Vital Signs: Height 5 ft 6 in Weight 103.4 kg Airway Mallampati Class: III TM Dist: >3cm Neck ROM: Full Loose/Missing/Broken Teeth: No Heart: RRR Lungs: CTA Assessment and Plan Assessment Anesthesia Assessment: Anesthesia Plan Discussed and Chart Reviewed Final Anesthetic Review History of Problems with Anesthesia: No NPO: Yes ASA Class: II Final Preanesthetic Review: Meds/Allgs Chart Reviewed, Consent Obtained/Reviewed and Anes Risks/Benef Reviewed Patient Risk: Low Procedure Risk: Intermediate Anesthetic Plan Anesthetic Plan: MAC: Disposition: Standard PACU
--- NOTE | 2024-08-18 10:06 | MHC.SHP ---
Pre-Procedural Eval Section A - 24 Hr Update-Section A only Date of Service: 08/18/24 The patient is an INPATIENT: No The patient has been examined within 24 hours of the surgical procedure. The History & Physical has been completed within 30 days and I have reviewed it.: Yes Section B - Complete if H&P > 30 days Chief Complaint: Morbid (severe) obesity due to excess calories Relevant Family History (Specify if Yes): No Relevant Social History: None Present Medications: None Medical History: No relevant PMH History of Previous Operations: No relevant previous surgery Allergies: Allergies Allergy/AdvReac Type Severity Reaction Status Date / Time No Known Allergies Allergy Verified 07/14/24 09:57 Review of Systems Sugical H&P ROS: Negative: Constitution, Cardiovascular, Respiratory, Neurological, Psychiatric, Hem-Onc, Allergic/Immunologic, Gastrointestinal, Genitourinary, Musculoskeletal, Integumentary, Endocrine and Eyes/Ears/Nose/Throat Exam Surgical H&P Exam: Normal: HEENT, Normal: Heart, Normal: Lungs, Normal: Extremities, Normal: Abdomen, Normal: Skin and Normal: Neurological Plan Diagnosis/Plan: Unchanged (EGD to assess etiology of GERD. Risks of bleeding and perforation were discussed with the patient and he is in agreement with the plan.) I have reviewed the history and physical and performed a pertinent physical examination on my patient. No changes have occurred unless specified. Time Spent With Patient Time: Total time managing care of this patient today ____ minutes.
[2024-08-18 10:07] VITALS: BP 148/70; PULSE 69; RESP 22; TEMP 36.6; O2SAT 96
--- NOTE | 2024-08-18 10:13 | PM.OP ---
Brief Operative Note Date of Service: 08/18/24 Pre-op diagnosis: GERD Post-op diagnosis: same Procedure: PROCEDURE DATE: 08/18/2024 PREOPERATIVE DIAGNOSIS: GERD POSTOPERATIVE DIAGNOSIS: ?Same as above. Small diaphragmatic hernia PROCEDURE: [id number] with biopsies Surgeon: Radames Bravo M.D.. Ph.D. Heating And Ventilation Engineer: None ? Anesthesia: IV sedation Estimated blood loss: ?Minimal FINDINGS AND PROCEDURE: ? OPERATIVE INDICATIONS: ?The patient is a 33 year old male known to me who is interested in bariatric surgery. The patient has GERD. Based on this information I recommended an upper endoscopy to evaluate the patient's symptoms. Risks and complications of the surgery were discussed with the patient in advance particularly the possibility of perforation or bleeding that may require surgical intervention. The patient understood the risks and was in agreement with the plan. ? PROCEDURE: After informed consent was obtained by the patient, the patient was ?transferred to the Operating Room and was placed in the supine position.? After successful induction of IV sedation, a mouth block was inserted and the patient was placed in the left lateral decubitus position. An upper endoscopy was performed next, the oropharynx and esophagus appeared within the normal limits. There was a small 2-3cm diaphragmatic hernia. The z-line was smooth. Two biopsies were obtained from the distal esophagus 2-3 cm proximal to the GE junction and two additional biopsies from the GE junction. The stomach was entered and it appeared to be of normal size. There was no gastritis. There was no stricture or ulcer. A biopsy was obtained from the gastric fundus and the antrum. No significant bleeding was noted from any of the biopsy sites. Retroflexion of the scope confirmed a normal GE junction. The scope was then advanced into the duodenum which appeared to be normal as well. At that point the duodenum ?and the stomach were decompressed and the scope was withdrawn from the patient's mouth. The patient extubated and was transferred in stable condition to the Recovery Room for further care. I was present and performed all steps of the procedure. There were no residents to assist with this case. Eleno Bravo M.D., Ph.D. Surgeon: Rashad Bravo MD Anesthesia: MAC Was an Heating And Ventilation Engineer used for this Procedure?: No Estimated blood loss (mL): 0 IV fluids (mL): 400 Urine output (mL): 0 (No Varghese to record output) Pathology: other (1) antrum x1, 2) fundus x1, 3) GE junction x2, 4) distal esophagus x2) Condition: stable Disposition: PACU
[2024-08-18 10:40] VITALS: BP 144/61; PULSE 102; RESP 18; TEMP 37.2; O2SAT 97
[2024-08-18 10:45] VITALS: BP 143/73; PULSE 94; RESP 18; O2SAT 96
[2024-08-18 10:50] VITALS: BP 128/71; PULSE 92; RESP 18; O2SAT 96
[2024-08-18 10:55] VITALS: BP 125/65; PULSE 85; RESP 18; TEMP 36.7; O2SAT 96
[2024-08-18] MEDS: Acetaminophen 325 MG TABLET 650 MG PO (10:58)
== END 2024-08-18 12:00 | disposition home or self-care (01) ==
PROVIDERS: PCP Internal Medicine; Visit Provider Surgery
PROC: 0DJ08ZZ Inspection of Upper Intestinal Tract, Via Natural or Artificial Opening Endoscopic (ICD-10-PCS; CPT 43235; principal; 2024-08-18 11:30)
DX: K21.9 Gastro-esophageal reflux disease without esophagitis (principal); E66.01 Morbid (severe) obesity due to excess calories; Z68.36 Body mass index [BMI] 36.0-36.9, adult; K44.9 Diaphragmatic hernia without obstruction or gangrene; K29.50 Unspecified chronic gastritis without bleeding; B96.81 Helicobacter pylori [H. pylori] as the cause of diseases classified elsewhere; I10 Essential (primary) hypertension; D69.6 Thrombocytopenia, unspecified; M54.9 Dorsalgia, unspecified; J45.909 Unspecified asthma, uncomplicated; A53.9 Syphilis, unspecified; F41.1 Generalized anxiety disorder; Z79.899 Other long term (current) drug therapy; Z79.1 Long term (current) use of non-steroidal anti-inflammatories (NSAID)
CPT/HCPCS: 43239; 88305; 88313; 88342; J2003; J2250; J2704

== ENCOUNTER → 2024-08-18 09:31 | Outpatient (BNV) | payer BC, SELFPAY | PROVIDERS: PCP Internal Medicine; Visit Provider Surgery | DX: K44.9 Diaphragmatic hernia without obstruction or gangrene (principal) | CPT/HCPCS: 43239 ==

== ENCOUNTER 2024-08-22 09:50 | Outpatient (REF) | payer BC, SELFPAY ==
--- NOTE | ~2024-08-22 | US_ITS ---
EXAMINATION: US ABDOMEN COMPLETE WITH LIVER ELASTOGRAPHY HISTORY: Z68.36 - Body mass index [BMI] 36.0-36.9, adult TECHNIQUE: Real-time grayscale ultrasound imaging of the abdomen was performed and images were reviewed. COMPARISON: Comparison is made with the prior examination dated 05/04/2022. FINDINGS: Liver: The right lobe of the liver measures 15.1 cm in size. The left lobe of the liver measures 12.8 cm in size. The liver demonstrates increased echotexture, consistent with steatosis. No focal mass or intrahepatic biliary ductal dilatation is identified. There is normal hepatopedal flow in the portal vein. Ultrasound elastography of the liver was performed with 10 separate measurements of the liver parenchyma with the patient in the supine position. Measurements were obtained approximately 2 cm below Favian's capsule and perpendicular to the capsule. Images are of satisfactory quality. The median shear wave velocity is 1.11 m/s. The interquartile range/median (IQR/median) is 0.13. Gallbladder and biliary tree: The gallbladder is unremarkable, without evidence of calculi, wall thickening, or pericholecystic fluid. There is no sonographic Arambula sign. The common bile duct is normal in caliber measuring 3 mm. Kidneys: The right kidney measures 11.4 cm in length. The left kidney measures 11.4 cm in length. There is a 1.7 x 1.8 x 2.4 cm simple cyst at the lower pole of the left kidney. The kidneys are otherwise unremarkable, without evidence of solid masses, hydronephrosis, or calculi. Pancreas: The pancreatic head and neck are unremarkable. The remainder of the pancreas is secured by bowel gas. Spleen: The spleen is top normal in size and contour, measuring 11.8 cm in length. Abdominal aorta and inferior vena cava: The visualized portions of the abdominal aorta and inferior vena cava are normal in caliber. There is no free fluid in the abdomen. US/US abdomen comp w elastography IMPRESSION: 1. Hepatomegaly and hepatic steatosis. 2. Borderline splenomegaly. The median shear wave velocity in the liver is 1.11 m/s, corresponding to a median liver stiffness of 3.73 kPa. The IQR/median value is 0.13. This is indicative of a quality data set. Findings are indicative of a normal elastography value with a low likelihood of severe fibrosis or cirrhosis. REFERENCE: Society of Radiologists in Ultrasound Liver Stiffness Thresholds (2020): LIVER STIFFNESS THRESHOLDS: *Shear wave velocity less than 1.3 m/s (Liver Stiffness equal or less than 5 kPa): High probability of being normal. *Shear wave velocity less than 1.7 m/s (Liver Stiffness less than 9 kPa): In the absence of other known clinical signs, rules out compensated advanced chronic liver disease. *Shear wave velocity between 1.7-2.1 m/s (Liver Stiffness 9-13 kPa): Suggestive of compensated advanced chronic liver disease but need further test for confirmation. *Shear wave velocity between 2.1-2.4 m/s (Liver Stiffness 13-17 kPa): Rules in compensated advanced chronic liver disease. *Shear wave velocity greater than 2.4 m/s (Liver Stiffness over 17 kPa): Suggestive of clinically significant portal hypertension. QUALITY OF DATA SET: *IQR/Median value equal or less that 0.15 implies a quality data set. *IQR/Median value over 0.15 implies a poor quality data set. SIGNIFICANT CHANGE FROM PRIOR EXAM: Significant change if liver stiffness measurement is 10% or greater from prior exam. OTHER CONSIDERATIONS: The stage of liver fibrosis may be overestimated in the setting of acute hepatitis, liver inflammation, elevated liver function tests, hepatic vascular congestion, obstructive cholestasis, non-fasting state, and infiltrative diseases such as amyloidosis and lymphoma. In some patients with NAFLD, the liver stiffness thresholds for compensated advanced chronic liver disease may be lower. In causes other than viral hepatitis and NAFLD, liver stiffness thresholds are not well established. Electronically signed by: Arnol Javed MD 08/22/2024 10:37 AM EDT
== END 2024-08-22 09:51 | disposition home or self-care (01) ==
LOC: HO.US 09:50
PROVIDERS: PCP Internal Medicine; Visit Provider Surgery
DX: E66.9 Obesity, unspecified (principal); Z68.36 Body mass index [BMI] 36.0-36.9, adult; K21.9 Gastro-esophageal reflux disease without esophagitis; I10 Essential (primary) hypertension
CPT/HCPCS: 76700; 76981

== ENCOUNTER → 2024-08-22 09:57 | Outpatient (BNV) | payer BC, SELFPAY | PROVIDERS: PCP Internal Medicine; Visit Provider Radiology Diagnostic Radiology | DX: K76.0 Fatty (change of) liver, not elsewhere classified (principal); R16.1 Splenomegaly, not elsewhere classified | CPT/HCPCS: 76700; 76981 ==

== ENCOUNTER 2024-08-25 14:36 | Outpatient (AMB) | payer BC, SELFPAY ==
--- NOTE | 2024-08-25 14:35 | MHC.WMTHER ---
Intake Intake Visit Reasons: VIDEO BH Intake Part 2 Allergies No Known Allergies Allergy (Verified 07/14/24 09:57) [facility] Medical History GERD (gastroesophageal reflux disease) Back pain Anxiety Hypertension Syphilis Obesity (BMI 30-39.9) Thrombocytopenia Generalized anxiety disorder Asthma Surgical History No pertinent past surgical history Family History Father Depression Mother Hypertension Depression Paternal Grandmother Breast cancer Brother Eye cancer Maternal Grandmother Myocardial infarction Maternal Grandfather Substance abuse Cirrhosis Other Brain tumor Mental health disorder Social History Housing: Apartment Alcohol intake: current Alcohol intake frequency: a few times a month Comment: tylenol given for headache- see emar Patient Tobacco Use Status: Never used Tobacco Tobacco use type: Cigarette Years Smoked: marijuana e-Cigarette/Vaping Use: Never Used Second Hand Smoke Exposure: No Substance Use Type: Marijuana Current occupational status: employed Cognitive needs: No Hearing needs: No Vision needs: No Behavioral Health Assessment Weight Management Therapy Therapy Notes Details The patient is a 33-year-old male presenting for his second visit to continue the behavioral health assessment as part of the surgical weight loss program. He was referred to the program by his primary care provider (PCP), who had previously attempted to initiate pharmacological weight loss treatment. However, insurance denied coverage, indicating that additional steps were required prior to approval. The patient shared that he currently lacks the resources to fully commit to the surgical weight loss program, though he is motivated to pursue lifestyle changes to improve his overall health and well-being. He also reports ongoing treatment for anxiety with his PCP and has been experiencing panic attacks over the past several months. PHQ-9 scores obtained today were elevated, indicating active symptoms of depression. 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 He acknowledged a desire to make the necessary changes to commit more fully to the program but emphasized that this process will require time. During today?s session, the patient stated that he does not wish to pursue bariatric surgery at this time and would prefer to explore medical (non-surgical) weight loss options instead. He is aware that should he choose to move forward with surgery in the future, he will need to return for a new behavioral health assessment. Presenting Concerns Referral Source [facility]MP-Provider. Reason for referral Completion of behavioral health assessment as part of process for weight-loss surgery. Precipitating Event Obesity. Living Situation Current Living Situation Own At risk of losing current housing? No Satisfied with current living situation? Yes Comments PT lives alone with his 2 dogs. Food/Weight/Diet Expectations of change PT started the program at 224 Lbs, and the initial goal is to lose 10% of their weight before surgery, which is about 24 lbs. Ultimate weight goal: 200 Lbs before surgery. Recent weights of 08/19/2024: 219Lbs Target weight goal: 155 - 175 lbs. PT is implementing the following: Current meal plan: a combination of shakes, bars, and 1 meal per day. Exercise plan: None. Scale: Yes. History/Relationship with food PT reports he tends to skip meals and then would eat whatever is available on the go. Example of meals before starting the program: Breakfast: Skip Lunch: @12 - Tuna melt, a protein shake, overnight oats Dinner: @ 4:30 pm or after 8 pm, depending on the day. Fast food (4x4 at [employer]), at home: quesadillas, pasta or mac and cheese, soups. Snacks: Granola bar, peanuts, trail mix. Drinks/Liquids: Soda: none. Coffee: 1 large coffee with/ sugar and cream and a mocha from [employer], Juice: 2-3 times a week, mostly a refresher from [employer]. Water: 3-5 bottles at day. History/Relationship with weight PT reports he was at a healthy weight in childhood. He was around 190 lbs. after graduating HS while working at [employer]. But most of adulthood his weight was in between 170 and 190 lbs. In the last 10 years, the patient's Lowest weight was 165 lbs. and the highest 227 lbs. PT reports he has been gaining weight after COVID-19. History/Relationship with dieting Fasting, low carb, and meal prepping. Social History Family history and relationship PT is single. Has no children, but he does foster care. His parents are alive but . He has 6 siblings on his dad's side and 2 on his mom's. PT reports good family dynamics. His family lives in town near. 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 Developmental history and status None reported. Currently reported anxiety. Social support Father, a close friend. Community support Co-workers. Lutheran/Spirituality None. Cultural/Ethnic information Hungarian/. Born and raised in [place], [place]. Legal Involvement and History Current or historical involvement with the legal system? None. Education Highest grade completed Some college. Preferred learning style Learn by doing Currently enrolled in educational program? Yes Interested in further educational program? Yes Educational Interests/Skills PT is finishing his Bachelors in human services and psychology. 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 ) Wants help to find employment? No Meaningful activities Dance, outdoors activities, play dominos. Financial Situation Describe current financial situation Financial struggles are a major source of stress Financial assistance? None Service Service? No Mental Health and Addiction Treatment Current/Past substance abuse? No Comments Alcohol: 4 beers 2-3 times at month. Cigarettes/Tobacco: None Cannabis/Edibles: smoke cannabis daily in the evening for anxiety, Current/Past addictive behavior concerns? No Psychiatric history PT reports his PCP has diagnosed him with anxiety and depression, and he's getting prescribed Hydroxyzine 50mg 1 at bedtime and sertraline 25mg 1 in the morning. He has had panic attacks during stressful situations PT reports his Sx of anxiety started a few years ago, characterized by constant worries, overthinking, and tension. He has been in therapy before a few years ago. PT denies ever been in crisis or hospitalized for mental health. Denies any history or current safety concerns around self-harm or other harm. Medical and Physical Health Summary Additional Medical History not covered in history None additional. Sexual History concerns None reported. Physical exam in the last year? Yes Pain Screening Current pain? No Pain in the last few months? Yes (Lower back pain. ) Medications Is the patient compliant with medications? No (uses them as needed. ) Does the patient have Welsh Guardian in place? Not applicable Does the patient use complimentary health approaches? No Trauma/Abuse History History of trauma? 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 ) Questionnaires PHQ-9 Over the last 2 weeks, how often have you been bothered by any of the following problems? 1. Little interest or pleasure in doing things: more than half the days 2. Feeling down, depressed, or hopeless: more than half the days 3. Trouble falling or staying asleep, or sleeping too much: more than half the days 4. Feeling tired or having little energy: nearly every day 5. Poor appetite or overeating: more than half the days 6. Feeling bad about yourself - or that you are a failure or have let yourself or your family down: more than half the days 7. Trouble concentrating on things, such as reading the newspaper or watching television: more than half the days 8. Moving or speaking so slowly that other people could have noticed. Or the opposite - being so fidgety or restless that you have been moving around a lot more than usual: more than half the days (fidgety ) 9. Thoughts that you would be better off or of hurting yourself in some way: not at all Total score: 17 Depression Screening Interpretation: Positive Depression Screening Done: Yes 56271 - PHQ-9 Billing: Yes Source: Developed by Drs. Arnol Petersen, Yu Brian, Paulo Blake and colleagues, with an educational sharmila from [employer]. Binge Eating Scale Group 1 A. I don't feel self-conscious about my wt. or body size when I'm with others. B. I feel concerned about how I look to others, but it normally does not make me fell disappointed with myself C. I do get self-conscious about my appearance and wt. which makes me feel disappointed in myself. D. I feel very self-conscious about my wt. and frequently I feel intense shame and disgust for myself. I try to avoid social contacts because of my self-consciousness. Response Group 1: D Group 2 A. I don't have any difficulty eating slowly in the proper manner. B. Although I seem to gobble down foods, I don't end up feeling stuffed because of eating to much. C. At times, I tend to eat quickly and then, I feel uncomfortably full afterwards. D. I have the habit of bolting down my food, without really chewing it. When this happens I usually feel uncomfortably stuffed because I've eaten to much. Response Group 2: A Group 3 A. I feel capable to control my eating urges when I want to. B. I feel like I have failed to control my eating more than the average person. C. I feel utterly helpless when it comes to feeling in control of my eating urges. D. Because I feel so helpless about controlling my eating I have become very desperate about trying to get control. Response Group 3: A Group 4 A. I don't have the habit of eating when I'm bored. B. I sometimes eat when I'm bored, but often I'm able to get busy and get my mind off food. C. I have a regular habit of eating when I'm bored, but occasionally, I can use some other activity to get my mind off eating. D. I have a strong habit of eating when I'm bored. Nothing seems to help me breath the habit. Response Group 4: A Group 5 A. I'm usually physically hungry when I eat something. B. Occasionally, I eat something on impulse even though I really am not hungry. C. I have the regular habit of eating foods, that I might not really enjoy, to satisfy a hungry feeling even though physically, I don't need the food. D. Although I'm not physically hungry, I get a hungry feeling in my mouth that only seems to be satisfied when I eat a food, like sandwich, that fills my mouth. Sometimes, when I eat the food to satisfy my mouth hunger, I then spit the food out so I won't gain weight. Response Group 5: A Group 6 A. I don't feel any guilt or self-hate after I overeat. B. After I overeat, occasionally I feel guilt or self-hate. C. Almost all the time I experience strong guilt or self-hate after I overeat. Response Group 6: B Group 7 A. I don't lose total control of my eating when dieting even after periods when I overeat. B. Sometimes when I eat a forbidden food on a diet, I feel like I blew it and eat even more. C. Frequently, I have the habit of saying to myself, I've blown it now, why not go all the way, when I overeat on a diet. When that happens I eat more. D. I have a regular habit of starting a strict diets for myself but I break the diets by going on an eating binge. My life seems to be either a feast or famine. Response Group 7: A Group 8 A. I rarely eat so much food that I feel uncomfortably stuffed afterwards. B. Usually about once a month, I each such a quantity of food, I end up feeling very stuffed. C. I have regular periods during the month when I eat large amounts of food, either at mealtime or at snacks. D. I eat so much food that I regularly feel quite uncomfortable after eating and sometimes a bit nauseous. Response Group 8: A Group 9 A. My level of calorie intake does not go up very high or go down very low on a regular basis. B. Sometimes after I overeat, I will try to reduce my caloric intake to almost nothing to compensate for the excess calories I've eaten. C. I have a regular habit of overeating during the night. It seems that my routine is not to be hungry in the morning but overeat in the evening. D. In my adult years, I have had week-long periods where I practically starve myself. This follows periods when I overeat. It seems I live a life of either feast or famine. Response Group 9: B Group 10 A. I usually am able to stop eating when I want to. I know when enough is enough. B. Every so often, I experience a compulsion to eat which I can't seem to control. C. Frequently, I experience strong urges to eat which I seem unable to control, but at other times I can control my eating urges. D. I feel incapable of controlling urges to eat. I have a fear of not being able to stop eating voluntarily. Response Group 10: A Group 11 A. I don't have any problem stopping eating when I feel full. B. I usually can stop eating when I feel full but occasionally overeat leaving me feeling uncomfortably stuffed. C. I have a problem stopping eating once I start and usually I feel uncomfortably stuffed after I eat a meal. D. Because I have a problem not being able to stop eating when I want, I sometimes have to induce vomiting to relieve my stuffed feeling. Response Group 11: A Group 12 A. I seem to eat just as much when I'm with others, Family social gatherings as when I'm by myself. B. Sometimes, when I'm with other persons, I don't eat as much as I want to eat because I'm self-conscious about my eating. C. Frequently, I eat only a small amount of food when others are present, because I'm very embarrassed about my eating. D. I feel so ashamed about overeating that I pick times to overeat when I know no one will see me. I feel like a closet eater. Response Group 12: A Group 13 A. I eat three meals a day with only an occasional between meal snack. B. I eat 3 meals a day, but I also normally snack between meals. C. When I am snacking heavily, I get in the habit of skipping regular meals. D. There are regular periods when I seem to be continually eating, with no planned meals. Response Group 13: C Group 14 A. I don't think much about trying to control unwanted eating urges. B. At least some of the time, I feel my thoughts are pre-occupied with trying to control my eating urges. C. I feel that frequently I spend much time thinking about how much I ate or about trying not to eat anymore. D. It seems to me that most of my waking hours are pre-occupied by thoughts about eating or not eating. I feel like I'm constantly struggling not to eat. Response Group 14: A Group 15 A. I don't think about food a great deal. B. I have strong craving for food but they last only for brief periods of time. C. I have days when I can't seem to think about anything else but food. D. Most of my days seem to be pre-occupied with thoughts about food. I feel like I live to eat. Response Group 15: A Group 16 A. I usually know whether or not I'm physically hungry. I take the right portion of food to satisfy me. B. Occasionally, I feel uncertain about knowing whether or not I'm physically hungry. A these times it's hard to know how much food I should take to satisfy me. C. Even though I might know how many calories I should eat, I don't have any idea what is a normal amount of food for me. Response Group 16: A Binge Eating Score: 7 Score less than 17 Minimal Risk Score between 18-26 Moderate Risk Score between 27-46 High Risk Assessment & Plan Assessment & Plan (1) Anxiety: Code(s): F41.9 - Anxiety disorder, unspecified (2) Pre-bariatric surgery psychological evaluation: Code(s): Z71.89 - Other specified counseling Plan The patient is not cleared from a behavioral health standpoint at this time. He expressed that he does not wish to pursue bariatric surgery and instead prefers to explore medical (non-surgical) weight loss options. He understands that if he chooses to proceed with surgery in the future, a new behavioral health assessment will be required. This provider will update the RN and MD on the patient?s change in direction and collaborate on appropriate follow-up steps and treatment planning. Next Appointment: To be determined. Telehealth Telehealth [facility]health [facility] Location of provider rendering services: other Location of patient: address on file Patient Identification confirmed using: Name, : Yes Telehealth method: voice only Patient verbally consented to treatment: Yes Patient verbally consented to billing insurance company: Yes Patient informed of any privacy concerns related to visit: Yes Minutes spent on Phone/Video with Pt.: 55 Coding Level of Care Code Established Pt Tele Psytx >53 mins ([id number]) Patient Type Established Diagnoses Anxiety F41.9 Pre-bariatric surgery psychological evaluation Z71.89 Additional Codes PHQ-9 - 11226 - PHQ-9 Billing: Yes ([id number]) Time Spent (min) 55
== END 2024-08-25 15:30 | disposition home or self-care (01) ==
LOC: HO.HBST 14:36
PROVIDERS: PCP Internal Medicine; Visit Provider Counselor Mental Health
DX: F41.9 Anxiety disorder, unspecified (principal); Z71.89 Other specified counseling
CPT/HCPCS: 90837

== ENCOUNTER 2024-09-25 14:20 | Outpatient (AMB) | payer BC, SELFPAY ==
[2024-09-25 14:57] VITALS: BP 128/84; PULSE 89; TEMP 37.2; O2SAT 99; BMI 36.4
--- NOTE | 2024-09-25 14:57 | AM.OFFWIN_ITS ---
Intake Vital Signs 3 09/25/24 14:57 Height 5 ft 6 in Weight 225 lb 6 oz BMI 36.4 BP 128/84 Blood Pressure Location Rt brachial Position Sitting Pulse 89 Pulse Source Pulse Oximeter Temp 98.9 F Temp Source Oral Pulse Oximetry (%) 99 Oxygen Delivery Method Room Air Intake Visit Reasons: EP Fever, sore throat Intake Note: Pt presents to the office today for c/o fever, and sore throat x5 days. Pt states he also noticed his tongue was swollen x4 days. Pt states he is unable to remove his piercing on his tongue due to the swelling. Pt denies it being a new piercing. Pt states he was in [place] and returned home yesterday. Patient Tobacco Use Status: Never used Tobacco Allergies No Known Allergies Allergy (Verified 09/25/24 15:00) HPI HPI Comments 2 History of Present Illness0 Details Patient is a 34-year-old male with a past medical history of GERD, back pain, HTN, anxiety, who was complaining of swelling on the tip of his tongue, subjective fevers and swelling in his neck. He states he just returned from [place] yesterday. He tells me the swelling started 6 days ago and he has had fevers for a few days. He also admits to a slight cough and bilateral ear pain but no shortness of breath or wheezing. He denies any sinus pain, headaches, head congestion or fatigue. He also tells me he has a tongue piercing and approximately a month ago he had an upper endoscopy at [facility] in when they tried to remove the tongue piercing for the procedure, they were unable to in he sustained a small laceration to the left side of his tongue which has been healing fine until this week. This week, he states it started swelling and now there is a little white spot and the piercing is almost unrecognizable in the tongue because of the swelling. He has tried taking hydroxyzine at night for sleep and it does not seem to help the swelling at all. [facility] Medical History GERD (gastroesophageal reflux disease) Back pain Anxiety Hypertension Syphilis Obesity (BMI 30-39.9) Thrombocytopenia Generalized anxiety disorder Asthma Surgical History No pertinent past surgical history Family History Father Depression Mother Hypertension Depression Paternal Grandmother Breast cancer Brother Eye cancer Maternal Grandmother Myocardial infarction Maternal Grandfather Substance abuse Cirrhosis Other Brain tumor Mental health disorder Social History Housing: Apartment Alcohol intake: current Alcohol intake frequency: a few times a month Comment: tylenol given for headache- see emar Patient Tobacco Use Status: Never used Tobacco Tobacco use type: Cigarette Years Smoked: marijuana e-Cigarette/Vaping Use: Never Used Second Hand Smoke Exposure: No Substance Use Type: Marijuana Current occupational status: employed Cognitive needs: No Hearing needs: No Vision needs: No Review of Systems Const All systems reviewed & are unremarkable except as noted in HPI and below Physical Exam Vital Signs: Last Vital Signs Temp 98.9 F 09/25/24 14:57 Pulse 89 09/25/24 14:57 BP 128/84 09/25/24 14:57 Pulse Ox 99 09/25/24 14:57 Oxygen Delivery Method Room Air 09/25/24 14:57 BMI result Body Mass Index 36.4 Const General: cooperative, healthy appearing, comfortable and no acute distress Orientation/consciousness: patient oriented x3 Limitations: no limitations HEENT Head: Yes normal to inspection Ears: hearing grossly normal bilaterally, external ears normal and TM's normal bilaterally General nose exam: Normal external nose present, Normal nares present and No nasal discharge present Face and sinus: Yes normal facial exam and Yes sinuses nontender Mouth: Normal oral and palatal mucosa present, lip normal, moist mucous membranes, no audible dysphonia, no drooling and no muffled voice Mouth/tongue images: [address], hard to discern with all the edema, slight purulence on the left side Throat: Yes tonsils normal, Yes uvula midline and Yes posterior oropharynx abnormal (Erythema) Eyes General: appearance normal, both eyes and all related structures Neck Neck: Yes normal visual inspection and Yes lymphadenopathy (Right side, tenderness) Resp Effort & Inspection: normal respiratory effort, able to speak in complete sentences, Actively coughing, no respiratory distress, not tachypneic, no tripod positioning and no use of accessory muscles Auscultation: clear to auscultation bilaterally Cardio Rate: regular rate Rhythm: regular rhythm Heart sounds: normal S1 and S2 Skin General skin exam: no rashes or lesions noted Neuro General: patient oriented x3 Extrem General: Yes normal to inspection and Yes no clubbing, cyanosis or edema Results AMB Rapid Strep 2 AMB Rapid Strep Negative Last Edit by Ivonne Garcia CMA on 09/25/24 15:19 Assessment & Plan Assessment & Plan (1) Tongue infection: Code(s): K14.0 - Glossitis Plan: Rapid strep negative. Vital signs stable, patient well-appearing and physical exam remarkable for right-sided cervical lymphadenopathy as well as edema in the tip of the tongue with some purulence on the left side of where his tongue piercing is. Likely has an infection in the tongue which is leading to the cervical lymphadenopathy. I did give him a small dose of prednisone for 5 days along with Augmentin for 7 days. Recommended if any swelling increases any has trouble breathing or tickle in the back of his throat or lip swelling that he should call 911 immediately although I do not anticipate this because I feel the swelling is more likely from infection than allergy. He has been taking hydroxyzine for sleep all along and he states it does not help the swelling at all. The swelling is also very local to the tip of the tongue only. Orders: Orders 2 AMB Rapid Strep Screen Today Z13.9 - Encounter for screening, unspecified Medications: New 2 prednisone 20 mg (2 x 10 mg) PO QAM 10 tabs 0RF amoxicillin-pot clavulanate 875-125 mg 1 tab PO Q12H 14 tabs 0RF Coding Level of Care Code Est Pt Level 3 (16304) Diagnoses Tongue infection K14.0
== END 2024-09-25 15:28 | disposition home or self-care (01) ==
PROVIDERS: PCP Internal Medicine; Visit Provider Physician Assistant
DX: Z13.9 Encounter for screening, unspecified (principal); K14.0 Glossitis

== ENCOUNTER → 2024-09-25 14:20 | Outpatient (BNVA) | payer BC, SELFPAY | PROVIDERS: PCP Internal Medicine; Visit Provider Physician Assistant | DX: K14.0 Glossitis (principal); K21.9 Gastro-esophageal reflux disease without esophagitis; M54.9 Dorsalgia, unspecified; I10 Essential (primary) hypertension; F41.9 Anxiety disorder, unspecified | CPT/HCPCS: 87880 ==

== ENCOUNTER 2024-10-27 12:57 | Outpatient (AMB) | payer BC, SELFPAY ==
--- NOTE | 2024-10-27 13:05 | A.OFFPC_ITS ---
Vital Signs 10/27/24 13:09 Height 5 ft 6 in Weight 216 lb 8 oz BMI 34.9 BP 130/70 Blood Pressure Location Lt brachial Position Sitting Pulse 78 Pulse Source Pulse Oximeter Pulse Oximetry (%) 96 Oxygen Delivery Method Room Air Intake Visit Reasons: CAMERON Allergies No Known Allergies Allergy (Verified 09/25/24 15:00) Medication List - Last Reconciled 10/27/24 by Kavya Nagy MD albuterol sulfate 90 mcg/actuation 2 puffs inhalation Q6H PRN blood pressure monitor (Blood Pressure Kit) As directed cholecalciferol (vitamin D3) 125 mcg PO DAILY clotrimazole 1% 1 appl topical BID 4 weeks hydroxyzine HCl 50 mg PO BEDTIME Tobacco use date assessed: 07/14/24 Dental Screening Dental Screen Date: 05/27/24 [facility] Medical History GERD (gastroesophageal reflux disease) Back pain Anxiety Hypertension Syphilis Obesity (BMI 30-39.9) Thrombocytopenia Generalized anxiety disorder Asthma Surgical History No pertinent past surgical history Family History Father Depression Mother Hypertension Depression Paternal Grandmother Breast cancer Brother Eye cancer Maternal Grandmother Myocardial infarction Maternal Grandfather Substance abuse Cirrhosis Other Brain tumor Mental health disorder Social History Housing: Apartment Alcohol intake: current Alcohol intake frequency: a few times a month Comment: tylenol given for headache- see emar Patient Tobacco Use Status: Never used Tobacco Tobacco use type: Cigarette Years Smoked: marijuana e-Cigarette/Vaping Use: Never Used Second Hand Smoke Exposure: No Substance Use Type: Marijuana Current occupational status: employed Cognitive needs: No Hearing needs: No Vision needs: No Questionnaire Thrive Questionnaire Date Thrive assessed: 05/27/24 I am a: Patient What is your living situation today?: I have a steady place to live Within the past 12 months, did the food you bought not last and you didn't have the money to get more?: Sometimes True Within the past 12 months, did you worry whether your food would run out before you got money to buy more?: Sometimes True Do you have trouble paying for medicines?: Yes Do you have trouble getting transportation to medical appointments?: No Do you have trouble paying your heating and electricity bill?: Yes Do you have trouble taking care of your child, family member or friend?: No Do you have trouble with day-to-day activities such as bathing, preparing meals, shopping, managing finances, etc.?: No Are you currently unemployed and looking for a job?: No Are you interested in more education?: Yes Currently or been in a relationship where the following occur: No concerns reported THRIVE Score: 3 CAMERON-7 AMB Questionnaire CAMERON-7 Date CAMERON - 7 assessed: 10/27/24 Feeling nervous, anxious, or on edge: 2 = More than half the days Not being able to stop or control worryin = Nearly every day Worrying too much about different things: 3 = Nearly every day Trouble relaxin = More than half the days Being so restless that it is hard to sit still: 1 = Several days Becoming easily annoyed or irritable: 0 = Not at all Feeling afraid as if something awful might happen: 2 = More than half the days Total CAMERON-7 score (0-4 normal; 5-9 mild; 10-14 moderate; 15-21 severe): 13 Source: Developed by Drs. Arnol Petersen, Yu Brian, Paulo Blake and colleagues, with an educational sharmila from [employer]. CAMERON-7 Assessment Billing CAMERON-7 Assessment Tool: CAMERON-7 Assessment 10028 Physical exam (Primary Care) Vital Signs: Last Vital Signs Pulse 78 10/27/24 13:09 BP 130/70 10/27/24 13:09 Pulse Ox 96 10/27/24 13:09 Oxygen Delivery Method Room Air 10/27/24 13:09 BMI result Body Mass Index 34.9 Tobacco/Smoking Status: Tobacco use Status Tobacco use date assessed 07/14/24 10/27/24 13:07 Patient Tobacco Use Status Never used Tobacco 10/27/24 13:07 Tobacco use type Cigarette 10/27/24 13:07 e-Cigarette/Vaping Use Never Used 10/27/24 13:07 Thrive Assessment: Date of Thrive Assessment Date Thrive assessed 05/27/24 10/27/24 13:07 Currently or been in a relationship where the following occur: No concerns reported Const General: alert; No acute distress Eyes Conjunctivae: conjunctivae normal Resp Auscultation: clear to auscultation bilaterally Cardio Rate: regular rate Rhythm: regular rhythm GI Inspection: Yes normal to inspection Extrem General: Yes normal to inspection and No edema Coding Level of Care Code Est Pt Level 4 (71153) Complex EM visit Add On G2211 Diagnoses Obesity (BMI 30-39.9) E66.9 GERD (gastroesophageal reflux disease) K21.9 Asthma J45.909 Generalized anxiety disorder F41.1 Hepatic steatosis K76.0 Additional Codes CAMERON-7 Assessment Billing - CAMERON-7 Assessment Tool: CAMERON-7 Assessment 90875 ([id number]) Assessment & Plan Assessment & Plan (1) Obesity (BMI 30-39.9): Code(s): E66.9 - Obesity, unspecified Category: Medical Plan: Diet and exercise patient is being followed up by bariatric (2) GERD (gastroesophageal reflux disease): Code(s): K21.9 - Gastro-esophageal reflux disease without esophagitis Category: Medical Plan: Avoid the foods that causes that usually spicy foods, tomato products, juices, coffee, soda and foods that your sensitive to. After eating do not lie down, allow 3-4 hours before in lie down. And keep the head of bed above 30 degrees to avoid the acid from going up. (3) Asthma: Code(s): J45.909 - Unspecified asthma, uncomplicated Category: Medical Plan: Continue with albuterol as needed (4) Generalized anxiety disorder: Code(s): F41.1 - Generalized anxiety disorder Category: Medical Plan: On sertraline 25 mg once a day (5) Hepatic steatosis: Code(s): K76.0 - Fatty (change of) liver, not elsewhere classified Category: Medical Plan: Low-fat diet and exercise Plan History of Present Illness The patient is a 34-year-old male presenting for management of multiple chronic conditions including obesity, hypertension, and asthma. The patient has a history of obesity, with a recent weight loss of 9 pounds. He has been diagnosed with asthma and continues to use albuterol as needed for symptom management. Hypertension is noted as a chronic condition, with current management details not specified in the conversation. The patient was diagnosed with generalized anxiety disorder, last evaluated in June 2024, and is currently on sertraline 25 mg once daily. In September, the patient visited an urgent care center for a sore throat and was treated for glossitis with Augmentin and prednisone. An EGD was performed under the care of a bariatric surgeon, and an ultrasound revealed hepatic steatosis with borderline splenomegaly. A blood test conducted on July 11 showed a normal blood count with microcytic anemia, normal platelet count, normal electrolytes, and normal renal function. Liver function tests were normal, but vitamin D levels were low, and LDL cholesterol was 129 mg/dL. Health Maintenance - Diet and exercise were discussed as part of weight management and overall health improvement. Social History - Exercise: Patient is advised to engage in regular physical activity as part of weight management. Review of Systems - Respiratory: Reports asthma, managed with albuterol as needed. - Gastrointestinal: Reports history of glossitis, treated with Augmentin and prednisone. Physical Exam Results - Labs: Blood test on July 11 showed normal blood count with microcytic anemia, normal platelet count, normal electrolytes, normal renal function, and low vitamin D levels. - Imaging: Ultrasound showed hepatic steatosis with borderline splenomegaly. Plan The patient is advised to continue with a low-fat diet and regular exercise to manage obesity and improve overall health. For asthma, the patient should continue using albuterol as needed and monitor symptoms closely. Management of hypertension was not detailed, but regular monitoring and adherence to prescribed medications are implied. For generalized anxiety disorder, the patient is to continue sertraline 25 mg daily and follow up as needed. Vitamin D deficiency should be addressed with appropriate supplementation. Patient was informed and verbally consented to the use of an ambient scribe for clinic note documentation during this visit. Discussion Notes Patient Instructions - Continue with a low-fat diet and regular exercise. - Use albuterol as needed for asthma symptoms. - Take sertraline 25 mg daily for anxiety. - Consider vitamin D supplementation. Medications: New bupropion HCl XL (Wellbutrin XL) 150 mg PO QAM 30 tabs 2RF F41.1 - Generalized anxiety disorder
[2024-10-27 13:09] VITALS: BP 130/70; PULSE 78; O2SAT 96; BMI 34.9
== END 2024-10-27 14:06 | disposition home or self-care (01) ==
LOC: HO.HMCH 12:58
PROVIDERS: PCP Internal Medicine; Visit Provider Internal Medicine
DX: K21.9 Gastro-esophageal reflux disease without esophagitis (principal); J45.909 Unspecified asthma, uncomplicated; E66.9 Obesity, unspecified; Z68.34 Body mass index [BMI] 34.0-34.9, adult; F41.1 Generalized anxiety disorder; K76.0 Fatty (change of) liver, not elsewhere classified

== ENCOUNTER → 2024-10-27 12:57 | Outpatient (BNVA) | payer BC, SELFPAY | PROVIDERS: PCP Internal Medicine; Visit Provider Internal Medicine | DX: E66.9 Obesity, unspecified (principal); Z68.34 Body mass index [BMI] 34.0-34.9, adult; K21.9 Gastro-esophageal reflux disease without esophagitis; J45.909 Unspecified asthma, uncomplicated; F41.1 Generalized anxiety disorder; K76.0 Fatty (change of) liver, not elsewhere classified; Z79.899 Other long term (current) drug therapy; Z13.39 Encounter for screening examination for other mental health and behavioral disorders | CPT/HCPCS: 96127 ==